=== PATIENT | female | born 1990 | race African-American/Black ===

== ENCOUNTER 2020-12-23 10:43 | Outpatient (CLI) | payer MEDICAID, SELFPAY ==
[2020-12-23 11:07] LABS: HCT 30.7 % (36.0-46.0); HGB 10.5 g/dL (11.2-15.7); MCH 27.5 pg (27.0-33.0); MCHC 34.2 % (32.0-36.0); MCV 80.4 fL (80-95); MPV 11.2 fL (8.0-11.0); Platelet Count 300 10^3/uL (130-400); RBC 3.82 10^6/uL (3.93-5.22); RDW 13.4 % (11.7-14.6); RDW-SD 38.9 fL; WBC 8.55 10^3/uL (4.4-10.8)
[2020-12-23 11:24] LABS: Hemoglobin A1C 5.3 % (<5.7)
[2020-12-23 12:24] LABS: ALT 25 U/L (14-59); AST 14 U/L (15-37); Albumin 3.2 g/dL (3.4-5.0); Alkaline Phosphatase 39 U/L (46-116); Anion Gap 9.4 mmol/L (3-11); BUN 4 mg/dL (7-18); Bilirubin, Total 0.2 mg/dL (0.2-1.0); CO2 26.6 mmol/L (21.0-32.0); CREATININE 0.5 mg/dL (0.55-1.02); Calcium 9.2 mg/dL (8.5-10.1); Chloride 108 mmol/L (98-107); Glucose 77 mg/dL (74-106); Potassium 4.2 mmol/L (3.5-5.1); Sodium 144 mmol/L (136-145); Total Protein 6.9 g/dL (6.4-8.2); Uric Acid 3.9 mg/dL (2.6-6.0)
[2020-12-23 14:00] LABS: LDH 153 U/L (81-234)
[2020-12-23 16:47] LABS: PROTEIN 24.3 mg/dL
[2020-12-23 16:58] LABS: *AMPHETAMINES SCREEN URINE Negative (Negative); *BARBITURATES SCREEN URINE Negative (Negative); *BENZODIAZEPINES SCREEN URINE Negative (Negative); Cannabinoids THC Negative (Negative); Cocaine Screen,Urine Negative (Negative); METHADONE URINE SCREEN Negative (Negative); OPIATES URINE SCREEN Negative (Negative)
[2020-12-23 17:34] LABS: Tricyclic Antidepressants Negative (Negative)
[2020-12-23 17:53] LABS: COMMENT (LAB VIEW ONLY) 140.83 mg/dL; Prot/Crea Ur Ratio 0.17
== END 2020-12-23 10:44 | disposition home or self-care (01) ==
LOC: LBO 10:44
PROVIDERS: Visit Provider Advanced Practice Midwife
DX: I10 Essential (primary) hypertension (principal); Z34.92 Encounter for supervision of normal pregnancy, unspecified, second trimester
CPT/HCPCS: 36415; 80053; 80307; 85027; 86850; 86900; 86901; 82565; 83036; 83615; 84156; 84550

== ENCOUNTER 2021-01-19 13:54 | Outpatient (REF) | payer MEDICAID, SELFPAY | END 2021-01-19 13:55 | disposition home or self-care (01) | LOC: LBN 13:54 | PROVIDERS: Visit Provider Obstetrics & Gynecology | DX: Z34.92 Encounter for supervision of normal pregnancy, unspecified, second trimester (principal) | CPT/HCPCS: 87086 ==

== ENCOUNTER 2021-03-07 15:10 | Outpatient (CLI) | payer MEDICAID, SELFPAY ==
[2021-03-07 15:10] VITALS: BP 116/69; PULSE 108; TEMP 36.6
[2021-03-07 15:17] VITALS: BP 116/69; PULSE 108; RESP 16; TEMP 36.6
[2021-03-08 07:47] VITALS: BP 116/69; PULSE 108; TEMP 36.6
--- NOTE | 2021-03-08 07:47 | W.OBNST ---
Date of service: 03/08/21 Time of Service: 07:47 NST Evaluation Reason for NST Reasons for Nonstress Test: OTHER, SEE COMMENT Reason for NST Other: Hx of demise Gestational Age Gestational Age in Weeks and Days: 33 Weeks and 4Days Test and Monitor Explained Test/Monitor Explained: Test Explained, Monitor Explained and Patient Verbalized Understanding Vital Signs Blood Pressure: 116/69 Pulse: 108 Temperature: 97.9 F NST Information Date on Monitor: 03/07/21 Time on Monitor: 15:12 Date off Monitor: 03/07/21 Time off Monitor: 15:33 Total Time on Monitor: 21 NST Interventions: None NST Evaluation Patient States Movement: Present FHR Baseline: 130 Variability: Moderate 6-25 bpm Accelerations: 15x15 Decelerations: None NST Results: Reactive Note NST Note Note: Reactive NST, category 1 strip, irregular mild contractions noted. Nonpalpable. NST Reviewed and Verified by: Buffy Lantigua
== END 2021-03-07 15:45 | disposition home or self-care (01) ==
LOC: BCD 15:11 → OBS 15:15
PROVIDERS: Visit Provider Obstetrics & Gynecology
DX: O09.293 Supervision of pregnancy with other poor reproductive or obstetric history, third trimester (principal); Z3A.33 33 weeks gestation of pregnancy; Z87.59 Personal history of other complications of pregnancy, childbirth and the puerperium
CPT/HCPCS: 59025

== ENCOUNTER 2021-03-07 16:23 | Outpatient (REF) | payer MEDICAID, SELFPAY | END 2021-03-07 16:24 | disposition home or self-care (01) | LOC: LBN 16:23 | PROVIDERS: Visit Provider Obstetrics & Gynecology | DX: Z34.93 Encounter for supervision of normal pregnancy, unspecified, third trimester (principal) | CPT/HCPCS: 87077; 87086 ==

== ENCOUNTER 2021-03-14 09:58 | Outpatient (CLI) | payer MEDICAID, SELFPAY ==
[2021-03-14 12:44] VITALS: BP 131/78; PULSE 103; TEMP 36.8
[2021-03-14 13:02] VITALS: BP 131/78; PULSE 103
[2021-03-16 07:35] VITALS: BP 131/78; PULSE 103; TEMP 36.8
--- NOTE | 2021-03-16 07:35 | W.OBNST ---
Date of service: 03/16/21 Time of Service: 07:35 NST Evaluation Reason for NST Reasons for Nonstress Test: GDM- PO MEDICATION Gestational Age Gestational Age in Weeks and Days: 34 Weeks and 4Days Test and Monitor Explained Test/Monitor Explained: Test Explained, Monitor Explained and Patient Verbalized Understanding Vital Signs Blood Pressure: 131/78 Pulse: 103 Temperature: 98.2 F NST Information Date on Monitor: 03/14/21 Time on Monitor: 12:47 Date off Monitor: 03/14/21 NST Interventions: None NST Evaluation Patient States Movement: Present FHR Baseline: 140 Variability: Moderate 6-25 bpm Accelerations: 15x15 Decelerations: None NST Results: Reactive Note NST Note Note: Reactive NST, Category 1 strip NST Reviewed and Verified by: Buffy Lantigua
== END 2021-03-14 13:30 | disposition home or self-care (01) ==
LOC: BCD 10:15 → OBS 12:43
PROVIDERS: Visit Provider Obstetrics & Gynecology
DX: O24.415 Gestational diabetes mellitus in pregnancy, controlled by oral hypoglycemic drugs (principal); Z3A.34 34 weeks gestation of pregnancy
CPT/HCPCS: 59025

== ENCOUNTER 2021-03-17 09:52 | Outpatient (CLI) | payer MEDICAID, SELFPAY ==
[2021-03-17 13:49] VITALS: BP 125/71; PULSE 95; TEMP 36.7
[2021-03-17 14:07] VITALS: BP 125/71; PULSE 95
--- NOTE | 2021-03-17 15:08 | W.OBNST ---
Date of service: 03/17/21 Time of Service: 15:08 NST Evaluation Reason for NST Reasons for Nonstress Test: GDM- PO MEDICATION Gestational Age Gestational Age in Weeks and Days: 35 Weeks and 0Days Test and Monitor Explained Test/Monitor Explained: Test Explained, Monitor Explained and Patient Verbalized Understanding Vital Signs Blood Pressure: 125/71 Pulse: 95 Temperature: 98.1 F NST Information Date on Monitor: 03/17/21 Time on Monitor: 13:48 Date off Monitor: 03/17/21 Time off Monitor: 14:23 Total Time on Monitor: 35 NST Interventions: None Contraction Frequency: occasional NST Evaluation Patient States Movement: Present FHR Baseline: 135 Variability: Moderate 6-25 bpm Accelerations: 15x15 and Prolonged Decelerations: None NST Results: Reactive Note NST Note Note: Reactive NST. Pt has f/u appt 03/21/21. NST Reviewed and Verified by: Tereza Alfonso
[2021-03-17 15:10] VITALS: BP 125/71; PULSE 95; TEMP 36.7
== END 2021-03-17 14:30 | disposition home or self-care (01) ==
LOC: BCD 09:53 → OBS 13:05
PROVIDERS: Visit Provider Obstetrics & Gynecology
DX: O24.415 Gestational diabetes mellitus in pregnancy, controlled by oral hypoglycemic drugs (principal); Z3A.35 35 weeks gestation of pregnancy
CPT/HCPCS: 59025

== ENCOUNTER 2021-03-21 00:24 | Outpatient (CLI) | payer MEDICAID, SELFPAY ==
--- NOTE | 2021-03-21 07:30 | DI.US_ITS ---
Exam(s) US OB SACHA WEIGHT EXAM: US OB SACHA WEIGHT CLINICAL HISTORY: Growth and SACHA,gest diabetes,O24.419. TECHNIQUE: Transabdominal obstetrical ultrasound was performed. COMPARISON: No exams were available for comparison FINDINGS: There is a single viable intrauterine gestation with cardiac activity identified-152 bpm The fetus is presently in cephalic position . Amniotic fluid: There is a normal amount of amniotic fluid with an SACHA of 16.2cm. Placental location: The placenta is anterior grade 2,with no evidence of placenta previa.Distance fro m the placenta tip to the internal cervical os is greater than [address] this at approximately 35 weeks and 4 days gestational age, implying CONNIE of April 21, 2021. BPD measures 35 weeks and 4 days HC measures 35 weeks and 4 days AC measures 35 weeks and 4 days FL measures 35 weeks and 4 days Estimated weight is 2712 gm-6 pounds 0 ounce Fetus is at the 49th percentile on the Hadlock scale. IMPRESSION:: Viable 3rd trimester gestation, as described above. DATA REPOSITORY:
== END 2021-03-21 00:44 ==
PROVIDERS: Visit Provider Obstetrics & Gynecology
DX: O24.415 Gestational diabetes mellitus in pregnancy, controlled by oral hypoglycemic drugs (principal); O09.293 Supervision of pregnancy with other poor reproductive or obstetric history, third trimester; Z98.891 History of uterine scar from previous surgery; Z3A.35 35 weeks gestation of pregnancy
CPT/HCPCS: 76816

== ENCOUNTER 2021-03-21 13:52 | Outpatient (CLI) | payer MEDICAID, SELFPAY ==
[2021-03-21 14:11] VITALS: BP 126/74; PULSE 101; TEMP 36.7
--- NOTE | 2021-03-21 14:34 | W.ANESCON ---
General Date of Service Date of Service: 03/21/21 Reason for Consult Requesting Provider: Buffy Lantigua How Consult Conducted:: Seen in Office Reason for Consult:: Turkish-speaking OB patient scheduled for a on 03/30/21. Negative circumstances surrounding previous with demise. Consult Recommendation after Review:: I was able to discuss the plan with the patient using the translation grace, and also answer her questions. Her support person, Neha was also there. I plan to be her anesthesia provider for the procedure for continuity of care. Meds Allergies and Home Medications Allergies Allergy/AdvReac Type Severity Reaction Status Date / Time No Known Allergies Allergy Verified 02/15/21 15:07 Home Medication Medication Instructions Recorded famotidine 20 mg tablet 20 mg PO BID #60 tab 12/23/20 prenat.vits,elmo,hlp-dfns-qusyz 1 tab PO DAILY #30 tab 12/23/20 vitamin d PO 12/29/20 aspirin 81 mg tablet,delayed 162 mg PO DAILY #60 tab MDD 2 02/08/21 release tablets blood sugar diagnostic (OneTouch #100 ea 02/08/21 Ultra Test) lancets 33 gauge (OneTouch Delica #100 ea 02/08/21 Plus Lancet) metformin 1,000 mg tablet 1,000 mg PO DAILY #60 tab 03/07/21 metformin 500 mg tablet 500 mg PO DAILY #60 tab 03/07/21 cephalexin 500 mg capsule 500 mg PO BID #14 cap 03/09/21 PFSH Active Problems Active Problems: Problem Status Onset Code Group B streptococcal UTI N39.0, B95.5 UTI in O23.40 cardiac echogenic focus O35.8XX0 Hx of preeclampsia, prior , currently O09.299 Diabetes E11.9 Essential hypertension I10 Previous section Z98.891 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 Date GA/Weeks # Outcome Route Wgt Sex Labor Lgth Anesthesia Location Prov Complic 11/30/19 Unsuccessful [place] Delivery Date: 11/30/19 Last Updated by: Joy Pagan CNM 6 months, still born, no labor. . patient does not know etiology of loss or indications for . Vital Signs & Lab Results Point of Care Results Nursing Point of Care Results: No Data to Display Lab Results Blood Type / Crossmatch: No Data to Display Complete Blood Count: No Data to Display Complete Metabolic Panel: No Data to Display Liver Function Panel: No Data to Display Coagulation Panel: No Data to Display Cardiac Panel: No Data to Display Arterial Blood Gas: No Data to Display Venous Blood Gas: No Data to Display Pancreas Panel: No Data to Display Thyroid Panel: No Data to Display Infectious Disease: No Data to Display Blood Cultures: No Data to Display Toxicology Panel: No Data to Display Panel: No Data to Display
--- NOTE | 2021-03-21 14:54 | W.OBNST ---
Date of service: 03/21/21 Time of Service: 14:54 NST Evaluation Reason for NST Reasons for Nonstress Test: GDM- PO MEDICATION Gestational Age Gestational Age in Weeks and Days: 35 Weeks and 4Days Test and Monitor Explained Test/Monitor Explained: Test Explained, Monitor Explained and Patient Verbalized Understanding Vital Signs Blood Pressure: 126/74 Pulse: 101 Temperature: 98.1 F NST Information Date on Monitor: 03/21/21 Time on Monitor: 13:53 NST Interventions: PO Hydration NST Evaluation Patient States Movement: Present FHR Baseline: 140 Variability: Moderate 6-25 bpm Accelerations: 15x15 Decelerations: None NST Results: Reactive Note NST Note Note: Patient seen on the center today for surveillance due to history of previous stillbirth. She is doing well. Baby is moving and active. She has a reactive, category 1 NST. She will be seen on for repeat nonstress testing. She is scheduled for repeat section at 37 weeks. NST Reviewed and Verified by: Buffy Lantigua
[2021-03-21 14:55] VITALS: BP 126/74; PULSE 101; TEMP 36.7
== END 2021-03-21 14:30 | disposition home or self-care (01) ==
LOC: BCD 13:53 → OBS 14:08
PROVIDERS: Visit Provider Obstetrics & Gynecology
DX: O24.415 Gestational diabetes mellitus in pregnancy, controlled by oral hypoglycemic drugs (principal); Z3A.35 35 weeks gestation of pregnancy
CPT/HCPCS: 59025

== ENCOUNTER 2021-03-24 08:54 | Outpatient (CLI) | payer MEDICAID, SELFPAY ==
[2021-03-24 11:51] VITALS: BP 136/71; PULSE 114; TEMP 37
[2021-03-24 11:52] VITALS: BP 136/71; PULSE 114; TEMP 37
--- NOTE | 2021-03-29 16:44 | W.OBNST ---
Date of service: 03/24/21 Time of Service: 16:44 NST Evaluation Reason for NST Reasons for Nonstress Test: GDM- PO MEDICATION Gestational Age Gestational Age in Weeks and Days: 36 Weeks and 4Days Test and Monitor Explained Test/Monitor Explained: Patient Verbalized Understanding Vital Signs Blood Pressure: 136/71 Pulse: 114 Temperature: 98.6 F NST Information Date on Monitor: 03/24/21 Time on Monitor: 11:45 Date off Monitor: 03/24/21 Time off Monitor: 12:08 Total Time on Monitor: 23 NST Interventions: PO Hydration and Notify Provider NST Evaluation Patient States Movement: Present FHR Baseline: 140 Variability: Moderate 6-25 bpm Accelerations: 15x15 NST Results: Reactive Note NST Note Note: Reactive NST. Patient has signed preoperative consent for repeat delivery next week. Her questions were answered she will follow-up as needed. NST Reviewed and Verified by: Tereza Alfonso
[2021-03-29 16:45] VITALS: BP 136/71; PULSE 114; TEMP 37
== END 2021-03-24 13:09 | disposition home or self-care (01) ==
LOC: BCD 08:56 → OBS 11:48
PROVIDERS: Visit Provider Obstetrics & Gynecology Gynecology
DX: O24.415 Gestational diabetes mellitus in pregnancy, controlled by oral hypoglycemic drugs (principal); Z3A.36 36 weeks gestation of pregnancy
CPT/HCPCS: 59025; 87081

== ENCOUNTER 2021-03-28 02:20 | Outpatient (CLI) | payer MEDICAID, SELFPAY ==
[2021-03-28 10:00] LABS: Source Nasal/Nares
[2021-03-28 15:03] LABS: COVID-19 PCR Negative (Negative)
== END 2021-03-28 02:21 | disposition home or self-care (01) ==
PROVIDERS: Visit Provider Obstetrics & Gynecology
DX: Z20.822 Contact with and (suspected) exposure to COVID-19 (principal); Z01.818 Encounter for other preprocedural examination
CPT/HCPCS: 36415; 86850; 86900; 86901; 87635; 85025

== ENCOUNTER 2021-03-28 02:46 | Outpatient (CLI) | payer MEDICAID, SELFPAY ==
[2021-03-28 09:52] LABS: Abs Immature Grans 0.07 10^3/uL (0.0-0.06); Absolute Basophil Count 0.02 10^3/uL (0.0-0.2); Absolute Eosinophil Count 0.03 10^3/uL (0.0-0.7); Absolute Lymphocyte Count 2.21 10^3/uL (1.2-3.4); Absolute Monocyte Count 0.64 10^3/uL (0.1-0.8); Absolute Neutrophil Count 6.02 10^3/uL (1.2-6.7); Basophils % 0.2; Eosinophils % 0.3; HCT 32.8 % (36.0-46.0); HGB 11.2 g/dL (11.2-15.7); Immature Grans % 0.8; Lymphocytes % 24.6; MCH 27.4 pg (27.0-33.0); MCHC 34.1 % (32.0-36.0); MCV 80.2 fL (80-95); MPV 11.8 fL (8.0-11.0); Monocytes % 7.1; Nucleated RBC 0 %; Platelet Count 305 10^3/uL (130-400); RBC 4.09 10^6/uL (3.93-5.22); RDW 13.7 % (11.7-14.6); RDW-SD 39.6 fL; WBC 8.99 10^3/uL (4.4-10.8)
== END 2021-03-28 02:47 | disposition home or self-care (01) ==
LOC: LBO 02:47
PROVIDERS: Visit Provider Obstetrics & Gynecology
DX: Z01.818 Encounter for other preprocedural examination (principal)
CPT/HCPCS: 36415; 86850; 86900; 86901; 85025

== ENCOUNTER 2021-03-28 08:14 | Outpatient (CLI) | payer MEDICAID, SELFPAY ==
[2021-03-28 07:45] VITALS: BP 127/78; PULSE 101; TEMP 36.6
--- NOTE | 2021-03-28 09:09 | W.OBNST ---
Date of service: 03/28/21 Time of Service: 09:10 NST Evaluation Reason for NST Reasons for Nonstress Test: GDM- PO MEDICATION Gestational Age Gestational Age in Weeks and Days: 36 Weeks and 4Days Test and Monitor Explained Test/Monitor Explained: Test Explained, Monitor Explained and Patient Verbalized Understanding Vital Signs Blood Pressure: 127/78 Pulse: 101 Temperature: 97.9 F NST Information Date on Monitor: 03/28/21 Time on Monitor: 07:44 Date off Monitor: 03/28/21 Time off Monitor: 08:21 Total Time on Monitor: 37 NST Interventions: None Contraction Frequency: occasional NST Evaluation Patient States Movement: Present FHR Baseline: 135 Variability: Moderate 6-25 bpm Accelerations: 15x15 Decelerations: None NST Results: Reactive Note NST Note Note: Reactive NST, category 1 strip. Follow-up for repeat section as scheduled on Sunday NST Reviewed and Verified by: Buffy Lantigua
[2021-03-28 09:10] VITALS: BP 127/78; PULSE 101; TEMP 36.6
== END 2021-03-28 09:15 | disposition home or self-care (01) ==
LOC: BCD 08:15 → OBS 08:55
PROVIDERS: Visit Provider Obstetrics & Gynecology
DX: O24.415 Gestational diabetes mellitus in pregnancy, controlled by oral hypoglycemic drugs (principal); Z3A.36 36 weeks gestation of pregnancy
CPT/HCPCS: 59025; 87635

== ENCOUNTER 2021-03-30 05:35 | Inpatient (IN) | payer MEDICAID, SELFPAY ==
[2021-03-30] VITALS (8 sets, daily range): BP systolic 110–139; BP diastolic 70–90; PULSE 93–115; RESP 18–22; TEMP 36.2–37; O2SAT 100; BMI 27.6
[2021-03-30] MEDS: Lactated Ringers 1,000 ML 200 ML IV (06:39)
[2021-03-30] MEDS: ceFAZolin 2 GM/50 ML BAG IVPB (06:40)
[2021-03-30] MEDS: Sodium Citrate 30 ML CUP PO (07:24)
[2021-03-30] MEDS: AZITHROMYCIN 500 MG in Normal Saline 250 ML 250 MG IVPB (07:24)
--- NOTE | 2021-03-30 07:24 | ANES.PREOP_ITS ---
General Info Date of Service Date Performed: 03/30/21 Height: 5 ft 10 in Weight: 87.543 kg Body Mass Index (BMI): 27.6 Surgical Procedure: Operation Date: 03/30/21 07:40 Proposed Procedure Side Surgeon p Repeat Section, possible Hysterectomy Tereza Alfonso MD Meds Allergies and Home Medications Allergies Allergy/AdvReac Type Severity Reaction Status Date / Time No Known Allergies Allergy Verified 02/15/21 15:07 Home Medication Medication Instructions Recorded famotidine 20 mg tablet 20 mg PO BID #60 tab 12/23/20 prenat.vits,elmo,fad-tzob-wsdzo 1 tab PO DAILY #30 tab 12/23/20 vitamin d 2,000 units PO DAILY 12/29/20 aspirin 81 mg tablet,delayed 162 mg PO DAILY #60 tab MDD 2 02/08/21 release tablets blood sugar diagnostic (OneTouch #100 ea 02/08/21 Ultra Test) lancets 33 gauge (OneTouch Delica #100 ea 02/08/21 Plus Lancet) metformin 1,000 mg tablet 1,000 mg PO DAILY #60 tab 03/07/21 metformin 500 mg tablet 500 mg PO DAILY #60 tab 03/07/21 Current Visit Medications: Current Medications Generic Name Dose Route Start Last Admin Trade Name Freq PRN Reason Stop Dose Admin Citric Acid/Sodium Citrate 30 ml 03/30/21 06:00 Sodium Citrate 30 Ml Cup PO PREOP BIANCA Sodium Chloride 500 mls @ 0 mls/hr 03/30/21 05:58 Saline 500ml Bag IV PRN PRN As Directed Ringer's Solution 1,000 mls @ 200 mls/hr 03/30/21 06:00 03/30/21 06:39 IV 200 mls/hr INFUSION BIANCA Administration Cefazolin Sodium/Dextrose 2 gm in 50 mls @ 100 mls/hr 03/30/21 06:00 03/30/21 06:40 Ancef Duplex IVPB 100 mls/hr PREOP BIANCA Administration Azithromycin 500 mg/ Sodium 250 mls @ 250 mls/hr 03/30/21 06:00 Chloride IVPB PREOP BIANCA IV Miscellaneous Supplies 1 each 03/30/21 06:00 Iv Access IV DIRECTED BIANCA Sodium Chloride 0 ml 03/30/21 05:58 Normal Saline Flush 10 Ml Syr IVP PRN PRN PFSH Active Problems Active Problems: Problem Status Onset Code Group B streptococcal UTI N39.0, B95.5 UTI in O23.40 cardiac echogenic focus O35.8XX0 Hx of preeclampsia, prior , currently O09.299 Diabetes E11.9 Essential hypertension I10 Previous section Z98.891 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 Date GA/Weeks # Outcome Route Wgt Sex Labor Lgth Anesthes ia Location [facility] 11/30/19 Unsuccessful [place] Delivery Date: 11/30/19 Last Updated by: Joy Pagan CNM 6 months, still born, no labor. . patient does not know etiology of loss or indications for . Vital Signs and Lab Results Vital Signs Most Recent Vital Signs in EMR: Most Recent Vital Signs Temp Pulse Resp BP Pulse Ox 37 C 105 H 18 128/80 100 03/30/21 06:00 03/30/21 06:00 03/30/21 06:00 03/30/21 06:00 03/30/21 06:00 Lab Results Blood Type / Crossmatch: Patient ABO/Rh O Positive 03/28/21 Antibody Screen NEGATIVE 03/28/21 Complete Blood Count: White Blood Count 8.99 10^3/uL (4.4-10.8) 03/28/21 09:42 03/28/21 Red Blood Count 4.09 10^6/uL (3.93-5.22) 03/28/21 09:42 03/28/21 Hemoglobin 11.2 g/dL (11.2-15.7) 03/28/21 09:42 03/28/21 Hematocrit 32.8 % (36.0-46.0) L 03/28/21 09:42 03/28/21 Platelet Count 305 10^3/uL (130-400) 03/28/21 09:42 03/28/21 Complete Metabolic Panel: No Data to Display Liver Function Panel: No Data to Display Coagulation Panel: No Data to Display Cardiac Panel: No Data to Display Arterial Blood Gas: No Data to Display Venous Blood Gas: No Data to Display Pancreas Panel: No Data to Display Thyroid Panel: No Data to Display Infectious Disease: Coronavirus (COVID-19)(PCR) Negative (Negative) 03/28/21 09:15 03/28/21 Coronavirus 2019 Source Nasal/Nares 03/28/21 09:15 03/28/21 Blood Cultures: No Data to Display Toxicology Panel: No Data to Display Panel: No Data to Display Anesthesia Assessment and Plan Anesthesia History Personal History: No History of Anesthesia Complications Family History: No Family History of Anesthesia Complications Exercise Tolerance Exercise Tolerance: Metabolic Equivalents>4 Pertinent Negatives Pertinent Negatives: No Symptoms of GERD (On meds), No Major Cardiovascular Symptoms or Complaints, No Major Pulmonary Symptoms or Complaints and No History of CVA/TIA Cardiac & Pulmonary Exam Cardiac Exam: Normal S1/S2 Heart Sounds Pulmonary Exam: Clear Bilateral Breath Sounds Implantable Cardiac Device Does patient have a Pacemaker or an ICD?: No Airway Exam Known Difficult Airway: No Mallampati Class: 2 Mouth Opening: Normal (> 3cm) Thyromental Distance: Greater than 3 cm Neck Range of Motion: Full ROM Neck Circumference: Normal Teeth Condition: Normal Dentition ASA Classification ASA Score: ASA 2 Emergency Case?: No NPO Status NPO Status: NPO Clears >2 hours, Solids >8 hours Status Status: Confirmed Anesthesia Plan Resuscitation Status: Full Code Anesthesia Technique: Spinal Anesthesia Airway Planned: Natural Airway Monitors Used: Standard Monitors Preoperative Comments:: See preop consult
--- NOTE | 2021-03-30 08:09 | PLAC_PTH ---
PATIENT: Jolynn Bullock LOC: OBS U#:[id number] AGE/SX: 31/F ROOM: OBS.303 RE03/30/[address]: Tereza Alfonso : 1990 BED: A DIS: 03/30/2021 SPEC #: [id number] RECD: 03/30/21 12:36 STATUS: ARSLAN REQ #: [id number] SANDEE: 03/30/21 08:[address]: Tereza Alfonso DEPT: Surgical Specimen RECD BY: Elsa Delaney ENTERED: 03/30/21 12:37 SP TYPE: PLAC OTHR DR: Unknown,Unknown Tissues: 1 - PLACENTA (3RD TRIMESTER) Procedures: GROSS AND MICRO LEVEL 5 Comments: [id number]
[2021-03-30] MEDS: Bupivacaine LIPOSOME/PF 133 MG/10 ML VIAL IJ (08:41)
[2021-03-30] MEDS: Bupivacaine 0.5% Pres-Free 30 ML VIAL (08:42)
--- NOTE | 2021-03-30 09:21 | ROE_ITS ---
Date of service: 03/30/21 Time of Service: 09:21 Operative Note Operative Note DATE OF PROCEDURE: 03/30/21 PRE-OP DIAGNOSIS: IUP at 36w6d EGA. Unknown uterine scar, most likely vertical incision. PROCEDURE: scheduled repeat LTCS- SURGEON: Tereza Alfonso ASSISTING SURGEON: Maritza Jim ANESTHESIA TYPE: Spinal Refer to Anesthesia Record ESTIMATED BLOOD LOSS: 500 PATHOLOGY: other (placenta) COMPLICATIONS: None Patient was transported to: floor Patient's condition: stable Indications: 31yo female currently at 36W6D EGA was recommended to have a repeat delivery. Patient's previous was complicated by a intrauterine demise at 26 weeks and a . It was unclear from the patient's history what type of uterine scar was present. The concern was that patient had the vertical uterine incision at the time of her previous delivery. Because of the risk of uterine rupture were she to have labor decision was made to proceed with the delivery at around 37 weeks. Findings: Female infant weighing. Apgars 4/8/9 clear amniotic fluid normal-appearing uterus. There is no evidence of a previous uterine scar. Normal fallopian tubes and ovaries. Procedure Description: Patient was taken to the operating room she is placed in the sitting position and spinal anesthesia was administered without difficulty. She was then placed in the dorsal supine position with a leftward tilt. SCDs and a Lambert catheter to gravity drainage were in place. A vaginal prep with Betadine was performed and the patient was prepped and draped in the usual sterile fashion.Surgical timeout was performed. After a adequate level of anesthesia was achieved a Pfannenstiel skin incision was made approximately 2 cm superior to the pubic symphysis using a scalpel and the keloid from previous Pfannenstiel incision was excised and the underlying subcutaneous tissue dissected to the level of the rectus fascia using Bovie electrocautery . The rectus fascia was then nicked in the midline and the fascial incision extended laterally using curved Rosenberg scissors. 2 Live clamps were applied to the inferior rectus fascia and the rectus fascia was dissected off of the underlying rectus muscles using Bovie electrocautery and blunt technique. A similar technique was carried out on the superior rectus fascia. Rectus muscles were then in the midline and the peritoneum entered bluntly. The peritoneal incision was extended laterally using blunt technique. The vesicle-uterine peritoneum over lower uterine segment was incised with curved Rosenberg scissors and the bladder flap created bluntly. Scalpel was used to incise the lower uterine segment in a transverse fashion. The uterine incision was extended bluntly and the amniotic sac was ruptured with clear amniotic fluid noted. A single gloved hand was placed into the uterine cavity and the head was successfully delivered through the uterine incision with the assistance of a Kiwi suction cup applied to the 's occiput. The trunk and extremities were delivered with the assistance of fundal pressure. The cord was doubly clamped and cut and the infant handed off to the waiting pediatric team. Cord blood was obtained for lab and for arterial blood gas. the placenta was extracted with a combination of fundal massage and gentle cord traction. The uterus was exteriorized cleared of all clots and debris and the uterine incision reapproximated with a running lock suture of 0 Vicryl followed by a second imbricating suture of 0 Vicryl. Uterine incision was noted be hemostatic. The uterus was returned to the abdomen and the paracolic gutters cleared of all clots and debris. Uterine incision and the along with the bladder flap and the abdominal wall were all inspected and noted to be hemostatic. Peritoneum was reapproximated with a running suture of 2-0 Vicryl. The rectus fascia was reapproximated with a running suture of 0 Vicryl. space within the subcutaneous tissue closed with a running suture of 2-0 Vicryl. The skin i ncision was reapproximated with a subcuticular closure of 4-0 Monocryl. Skin incision is and sealed with skin glue. The uterus was massaged for any remaining clots and debris's. The patient was transported to recovery area in stable condition. All sponge, lap, and needle counts correct x2.
[2021-03-30] MEDS: MORPHine 2 MG/ML SYR 1 MG IVP ×2 (09:57→13:55)
--- NOTE | 2021-03-30 10:36 | W.ANESPOSTOP ---
Postoperative Evaluation Date, Time and Location Date Performed: 03/30/21 Time Performed: 09:15 Patient Location: Obstetrics Vital Signs Most Recent Imported Vital Signs: Most Recent Vital Signs Temp Pulse Resp BP Pulse Ox 36.4 C L 93 H 18 110/74 100 03/30/21 09:45 03/30/21 09:15 03/30/21 09:45 03/30/21 09:45 03/30/21 09:45 Pain Score Most Recent Pain Score: Most Recent Pain Score Pain Level 0 03/30/21 06:00 Assessment Mental Status: Awake (Alert & Oriented to Patient Baseline) Airway and Respiratory Function: Patent airway with normal (patient baseline) respiratory exam Cardiovascular Function: Hemodynamically Stable Hydration Status: Adequately Hydrated Nausea & Vomiting: No Nausea or Vomiting Pain: Pain is tolerable per patient Peripheral Nerve Block: Patient did not receive a nerve block
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
== END 2021-03-30 14:00 | disposition short-term general hospital (02) | DRG 787 ==
PROVIDERS: Admitting Provider Obstetrics & Gynecology Gynecology; Visit Provider Obstetrics & Gynecology Gynecology
PROC: 10D00Z1 Extraction of Products of Conception, Low, Open Approach (ICD-10-PCS; CPT 59514; principal; 2021-03-30 07:30)
DX: O24.12 Pre-existing type 2 diabetes mellitus, in childbirth (principal); O10.02 Pre-existing essential hypertension complicating childbirth; Z37.0 Single live birth; O99.12 Other diseases of the blood and blood-forming organs and certain disorders involving the immune mechanism complicating childbirth; Z3A.36 36 weeks gestation of pregnancy; O99.344 Other mental disorders complicating childbirth; F32.A Depression, unspecified; O34.219 Maternal care for unspecified type scar from previous cesarean delivery; D56.8 Other thalassemias
CPT/HCPCS: 59514; 88307; A4600; J0456; J0690; J1885; J2270; J2405; J2704; J3010

== ENCOUNTER 2022-01-10 16:44 | Outpatient (REF) | payer MEDICAID, SELFPAY ==
--- NOTE | 2022-01-10 16:15 | SKI_PTH ---
PATIENT: Jolynn Bullock LOC: [facility] U#:[id number] AGE/SX: 31/F ROOM: RE01/10/[address]: Rocael Tam MD : 1990 BED: DIS: 01/10/2022 SPEC #: [id number] RECD: 01/11/22 12:06 STATUS: ARSLAN REQ #: [id number] SANDEE: 01/10/22 16:[address]: Rocael Tam DEPT: Surgical Specimen RECD BY: Elas Delaney Tissues: 1 - SKIN BIOPSY(SHAVE/PUNCH) Procedures: SKIN LEVEL 4 Comments: [id number]
== END 2022-01-10 16:45 | disposition home or self-care (01) ==
LOC: LBN 16:44
PROVIDERS: PCP Family Medicine; Visit Provider Family Medicine
DX: B07.8 Other viral warts (principal)
CPT/HCPCS: 88305

== ENCOUNTER 2022-05-30 11:41 | Outpatient (CLI) | payer MEDICAID, SELFPAY ==
[2022-05-30 12:44] LABS: HCT 37.7 % (36.0-46.0); HGB 12.8 g/dL (11.2-15.7); MCH 25.6 pg (27.0-33.0); MCV 75 fL (80-95); Platelet Count 362 10^3/uL (130-400); RDW 14.1 % (11.7-14.6); WBC 7.81 10^3/uL (4.4-10.8)
[2022-05-30 12:58] LABS: Anion Gap 6.5 mmol/L (3-11); BUN 8 mg/dL (7-18); CO2 31.5 mmol/L (21.0-32.0); CREATININE 0.7 mg/dL (0.55-1.02); Calcium 9.5 mg/dL (8.5-10.1); Chloride 103 mmol/L (98-107); Estimated GFR 118.51 (mL/min/1.73m2); Glucose 140 mg/dL (74-106); Potassium 3.9 mmol/L (3.5-5.1); Sodium 141 mmol/L (136-145)
[2022-05-30 13:00] LABS: Hemoglobin A1C 6.1 % (<5.7)
[2022-05-30 13:49] LABS: Vitamin D 25 Total 22.6 ng/mL (30-100)
[2022-05-31 11:16] LABS: Hep B Core Antibody Negative (Negative)
== END 2022-05-30 11:42 | disposition home or self-care (01) ==
LOC: LOS 11:41
PROVIDERS: PCP Family Medicine; Referring Provider Family Medicine; Visit Provider Family Medicine
DX: E11.51 Type 2 diabetes mellitus with diabetic peripheral angiopathy without gangrene; E87.1 Hypo-osmolality and hyponatremia; G40.909 Epilepsy, unspecified, not intractable, without status epilepticus; R53.83 Other fatigue
CPT/HCPCS: 36415; 80048; 82306; 85027; 86704; 83036

== ENCOUNTER 2022-06-22 14:28 | Outpatient (REF) | payer MEDICAID, SELFPAY ==
--- NOTE | 2022-06-22 11:50 | PAPFT_PTH ---
PATIENT: Jolynn Bullock LOC: [facility] U#:[id number] AGE/SX: 32/F ROOM: RE06/22/[address]: Maritza Jim MD : 1990 BED: DIS: 06/22/2022 SPEC #: [id number] RECD: 06/22/22 14:44 STATUS: ARSLAN REQ #: [id number] SANDEE: 06/22/22 11:[address]: Maritza Jim DEPT: [facility] Cytology RECD BY: Elsa Delaney ENTERED: 06/22/22 14:44 SP TYPE: PAPFT OTHR DR: Rocael Tam MD Tissues: 1 - CX/ENDOCX FOR PAP SMEARS Procedures: PAP THIN PREP/[facility] Screening HPV DNA PROBE Comments: [id number]
== END 2022-06-22 14:29 | disposition home or self-care (01) ==
LOC: LBN 14:28
PROVIDERS: PCP Family Medicine; Visit Provider Obstetrics & Gynecology
DX: Z12.4 Encounter for screening for malignant neoplasm of cervix (principal); Z11.51 Encounter for screening for human papillomavirus (HPV)
CPT/HCPCS: 88142; 87624

== ENCOUNTER 2022-08-04 01:21 | Outpatient (CLI) | payer MEDICAID, SELFPAY ==
[2022-08-04 14:46] LABS: Panorama Kit Sent via Fed Ex
[2022-08-04 14:49] LABS: Abs Immature Grans 0.05 10^3/uL (0.0-0.06); Absolute Basophil Count 0.02 10^3/uL (0.0-0.2); Absolute Eosinophil Count 0.11 10^3/uL (0.0-0.7); Absolute Lymphocyte Count 2.57 10^3/uL (1.2-3.4); Absolute Monocyte Count 0.57 10^3/uL (0.1-0.8); Basophils % 0.2; Eosinophils % 1.3; HCT 33.9 % (36.0-46.0); HGB 11.7 g/dL (11.2-15.7); Immature Grans % 0.6; Lymphocytes % 31.3; MCH 26.2 pg (27.0-33.0); MCHC 34.5 % (32.0-36.0); MCV 76 fL (80-95); MPV 10.7 fL (8.0-11.0); Monocytes % 6.9; Neutrophils % 59.7; Platelet Count 355 10^3/uL (130-400); RBC 4.46 10^6/uL (3.93-5.22); RDW-SD 41.2 fL; WBC 8.22 10^3/uL (4.4-10.8)
[2022-08-05 09:31] LABS: HIV-1/2 Ag & Ab Screen Negative (Negative)
[2022-08-07 11:32] LABS: Hepatitis C Ab w Rflx HCV PCR Negative (Negative)
[2022-08-07 11:49] LABS: Hepatitis B Surface Ag Negative (Negative)
[2022-08-07 12:41] LABS: Varicella IgG Antibody Positive (See Note)
[2022-08-07 12:44] LABS: Rubella IgG Ab (UVM) Negative (See Note)
[2022-08-07 21:39] LABS: Syphilis IgG w/Reflex Nonreactive (Nonreactive)
[2022-09-04 11:29] LABS: Result Summary NEGATIVE; Specimen WB Whole Blood
== END 2022-08-04 01:22 | disposition home or self-care (01) ==
LOC: LBO 01:22
PROVIDERS: PCP Family Medicine; Visit Provider Advanced Practice Midwife
DX: Z34.91 Encounter for supervision of normal pregnancy, unspecified, first trimester (principal)
CPT/HCPCS: 36415; 81220; 81222; 86787; 86803; 86850; 86900; 86901; 87340; 87389; 85025; 86762; 86780

== ENCOUNTER 2022-08-04 15:01 | Outpatient (REF) | payer MEDICAID, SELFPAY ==
[2022-08-04 17:40] LABS: *AMPHETAMINES SCREEN URINE Negative (Negative); *BARBITURATES SCREEN URINE Negative (Negative); *BENZODIAZEPINES SCREEN URINE Negative (Negative); Cannabinoids THC Negative (Negative); Cocaine Screen,Urine Negative (Negative); METHADONE URINE SCREEN Negative (Negative); OPIATES URINE SCREEN Negative (Negative)
[2022-08-04 17:42] LABS: Tricyclic Antidepressants Negative (Negative)
[2022-08-11 14:21] LABS: Buprenorphine Negative ng/mL (Cutoff: 5.0); Norbuprenorphine Negative ng/mL (Cutoff: 2.5)
== END 2022-08-04 15:02 | disposition home or self-care (01) ==
LOC: LBN 15:01
PROVIDERS: PCP Family Medicine; Visit Provider Advanced Practice Midwife
DX: Z34.91 Encounter for supervision of normal pregnancy, unspecified, first trimester (principal)
CPT/HCPCS: 80307; 80348; 87086

== ENCOUNTER 2022-09-01 01:21 | Outpatient (CLI) | payer MEDICAID, SELFPAY ==
[2022-09-04 16:06] LABS: AFP 23.9 ng/mL; Calculated age at EDD 31 years; Cigarette smoking status non-Smoker; GA used in risk estimate Dates estimate; IVF Pregnancy No; Initial or repeat testing Initial testing; Insulin dependent diabetes No; Maternal Weight 213 lbs; Number of Fetuses 1; Prev Pregnancy w/NTD No; RECOMMENDED FOLLOW UP None.; Results Summary Normal risk
== END 2022-09-01 01:22 | disposition home or self-care (01) ==
LOC: LBO 01:21
PROVIDERS: PCP Family Medicine; Visit Provider Obstetrics & Gynecology Gynecology
DX: O24.112 Pre-existing type 2 diabetes mellitus, in pregnancy, second trimester; Z3A.15 15 weeks gestation of pregnancy; Z36.89 Encounter for other specified antenatal screening
CPT/HCPCS: 36415; 87491; 87591; 82105

== ENCOUNTER 2022-09-01 12:18 | Outpatient (REF) | payer MEDICAID, SELFPAY ==
[2022-09-02 12:44] LABS: Chlamydia Result Negative (Negative); GC Result Negative (Negative)
== END 2022-09-01 12:19 | disposition home or self-care (01) ==
LOC: LBN 12:18
PROVIDERS: PCP Family Medicine; Visit Provider Obstetrics & Gynecology Gynecology
DX: Z34.92 Encounter for supervision of normal pregnancy, unspecified, second trimester (principal); Z11.3 Encounter for screening for infections with a predominantly sexual mode of transmission; Z3A.15 15 weeks gestation of pregnancy
CPT/HCPCS: 87491; 87591

== ENCOUNTER → 2022-09-19 01:12 | Outpatient (CLI) | payer MEDICAID, SELFPAY ==
--- NOTE | 2022-09-19 06:40 | DI.US_ITS ---
Exam(s) US OB 2-3 TRIMESTER EXAM: US OB 2-3 TRIMESTER CLINICAL HISTORY: anatomy,Z34.91. TECHNIQUE: Transabdominal obstetrical ultrasound performed. COMPARISON: US POCUS EXAM from 07/20/2022 US POCUS EXAM from 09/18/2022 FINDINGS: Number of fetuses: One. position: Variable Placental grade: 1 Placental location: Anterior no evidence of previa. BIOMETRIC DATA: BPD: 45mm = 19+ 4 weeks HC: 167mm = 19+ 3 weeks AC: 148mm = 20+ 1 weeks FL: 30mm = 19+ 1 weeks Cisterna Magna: 3 points mm Cerebellum: 1.8 cm EFW: 304 grms greater than 97% Composite Age: 19+ 4 weeks EDC by US: 09 February 2023 Heart Rate: !ErrorBPM Amniotic fluid : Amount of fluid is within normal limits. ANATOMICAL SURVEY: Four-chambered heart: Unremarkable. LVOT: Unremarkable. RVOT: Unremarkable. Left-sided stomach: Unremarkable. urinary bladder: Unremarkable. Bilateral kidneys: Unremarkable. Three-vessel cord: Unremarkable. Cord insertion: Unremarkable. Posterior fossa:Unremarkable. ventricles: Unremarkable. nose: Unremarkable. lips: Unremarkable. palate: Unremarkable. spine: Unremarkable. Two arms and two legs: Unremarkable. IMPRESSION: 1. Single live intrauterine gestation with composite age 19+ 4 weeks.. 2. Normal anatomic survey. DATA REPOSITORY:
== END ==
PROVIDERS: PCP Family Medicine; Visit Provider Obstetrics & Gynecology Gynecology
DX: Z34.92 Encounter for supervision of normal pregnancy, unspecified, second trimester (principal)
CPT/HCPCS: 76805

== ENCOUNTER 2022-09-29 09:40 | Outpatient (REF) | payer MEDICAID, SELFPAY ==
[2022-09-30 14:42] LABS: Chlamydia Result Negative (Negative); GC Result Negative (Negative)
== END 2022-09-29 09:41 | disposition home or self-care (01) ==
LOC: LBN 09:40
PROVIDERS: Obstetrics & Gynecology; PCP Family Medicine; Visit Provider Advanced Practice Midwife
DX: Z34.92 Encounter for supervision of normal pregnancy, unspecified, second trimester (principal); Z3A.19 19 weeks gestation of pregnancy; Z11.3 Encounter for screening for infections with a predominantly sexual mode of transmission
CPT/HCPCS: 87491; 87591

== ENCOUNTER → 2022-11-30 02:29 | Outpatient (CLI) | payer MEDICAID, SELFPAY ==
--- NOTE | 2022-11-30 07:45 | DI.US_ITS ---
Exam(s) US OB SACHA WEIGHT EXAM: US OB SACHA WEIGHT CLINICAL HISTORY: growth,DIABETES,E11.9. TECHNIQUE: Transabdominal obstetrical ultrasound performed. COMPARISON: US POCUS EXAM from 07/20/2022 US POCUS EXAM from 09/18/2022 US US OB 2-3 TRIMESTER from 09/19/2022 FINDINGS:: Number of fetuses: One. position: Vertex. Placental location: Anterior. No evidence of previa. BIOMETRIC DATA: BPD: 74mm = 29+ 4 weeks HC: 272mm = 29+ 5 weeks AC: 267mm = 30+ 6 weeks FL: 55 mm = 29+ 1 weeks EFW: 1509 Gms = 89% Composite Age: 29+ 6 weeks CONNIE: February 28 Heart Rate: 146BPM Amniotic fluid index: 16.4 cm. Amount of fluid is visually within normal limits. IMPRESSION: size measuring slightly above the expected range. weight within the normal range. DATA REPOSITORY:
== END ==
PROVIDERS: PCP Family Medicine; Visit Provider Obstetrics & Gynecology
DX: Z34.93 Encounter for supervision of normal pregnancy, unspecified, third trimester (principal); E11.9 Type 2 diabetes mellitus without complications
CPT/HCPCS: 76816

== ENCOUNTER 2022-12-01 10:07 | Outpatient (CLI) | payer MEDICAID, SELFPAY ==
[2022-12-01 09:46] LABS: Abs Immature Grans 0.06 10^3/uL (0.0-0.06); Absolute Basophil Count 0.02 10^3/uL (0.0-0.2); Absolute Eosinophil Count 0.07 10^3/uL (0.0-0.7); Absolute Lymphocyte Count 1.88 10^3/uL (1.2-3.4); Absolute Monocyte Count 0.39 10^3/uL (0.1-0.8); Absolute Neutrophil Count 5.43 10^3/uL (1.2-6.7); Basophils % 0.3; Eosinophils % 0.9; HCT 31.2 % (36.0-46.0); HGB 10.6 g/dL (11.2-15.7); Immature Grans % 0.8; Lymphocytes % 23.9; MCH 25.7 pg (27.0-33.0); MCV 76 fL (80-95); MPV 10.9 fL (8.0-11.0); Neutrophils % 69.1; Platelet Count 353 10^3/uL (130-400); RBC 4.12 10^6/uL (3.93-5.22); RDW 14.6 % (11.7-14.6); RDW-SD 39.8 fL; WBC 7.85 10^3/uL (4.4-10.8)
== END 2022-12-01 10:08 | disposition home or self-care (01) ==
LOC: LBO 10:07
PROVIDERS: PCP Family Medicine; Visit Provider Obstetrics & Gynecology
DX: Z34.93 Encounter for supervision of normal pregnancy, unspecified, third trimester (principal)
CPT/HCPCS: 36415; 85025

== ENCOUNTER 2022-12-11 01:51 | Outpatient (CLI) | payer MEDICAID, SELFPAY ==
[2022-12-11] MEDS: Levalbuterol HFA 15 GM INH 4 PUFF IH (14:47)
[2022-12-11] MEDS: Inhaler, Assist Device 1 EACH MC (14:48)
--- NOTE | 2022-12-11 15:49 | W.PFT ---
Date of service: 12/11/22 Time of Service: 13:07 Pulmonary Function Test Result Indications: Dyspnea Interpretation Spirometry: There is no airflow limitation. No significant bronchodilator response. There is expiratory loop flattening. Lung Volumes: Normal lung volumes Diffusion Capacity: Normal diffusion Airway Pressure: Normal airways resistance Impression Normal pulmonary function testing with blunting of the expiratory flow curve which could be indicative of variable intrathoracic obstruction. This could represent tracheomalacia or possibly endobronchial obstruction. Recommend high resolution CT to rule out these possibilities if clinically appropriate. Clinical Correlation therefore is recommended.
== END 2022-12-11 01:52 | disposition home or self-care (01) ==
LOC: RT 01:52
PROVIDERS: PCP Family Medicine; Visit Provider Family Medicine
DX: R06.00 Dyspnea, unspecified (principal)
CPT/HCPCS: 94060; 94726; 94729

== ENCOUNTER 2023-01-05 01:02 | Outpatient (CLI) | payer MEDICAID, SELFPAY ==
--- NOTE | 2023-01-05 07:45 | DI.US_ITS ---
Exam(s) US OB SACHA WEIGHT EXAM: US OB SACHA WEIGHT CLINICAL HISTORY: growth,gestational diabetes,O24.419. TECHNIQUE: Transabdominal obstetrical ultrasound performed. COMPARISON: US US OB SACHA WEIGHT from 11/30/2022 FINDINGS: Number of fetuses: 1 position: CEPHALIC Placental location: FUNDAL No evidence of previa. BIOMETRIC DATA: BPD: 9.02 cm, 36 weeks 4 days HC: 32.42 cm, 36 weeks 5 days AC: 32.38 cm, 36 weeks 2 days FL: 7.03 cm, 36 weeks EFW: 2902.18 g, 6 lb 6 oz, 49.6 % Composite Age: 36 weeks 3 days CONNIE: 01/30/2023 Heart Rate: 146 bpm Amniotic fluid index: 12.43 cm. Visually, amount of fluid is within normal limits. IMPRESSION: 1. Single live intrauterine gestation as above. 2. Estimated weight is 2902gms. This is the 50th percentile. 3. Amniotic fluid index is 12.4 cm. Visually within normal limits. DATA REPOSITORY:
[2023-02-06 15:41] VITALS: BP 150/92; PULSE 88; RESP 16
== END 2023-02-06 16:01 ==
LOC: DI 01:02 → OBS 02-06 15:37
PROVIDERS: PCP Family Medicine; Visit Provider Obstetrics & Gynecology
DX: O24.410 Gestational diabetes mellitus in pregnancy, diet controlled (principal); Z3A.36 36 weeks gestation of pregnancy
CPT/HCPCS: 76816; 80053; 85025

== ENCOUNTER 2023-01-10 11:00 | Outpatient (CLI) | payer MEDICAID, SELFPAY ==
[2023-01-10 11:15] VITALS: BP 123/57; PULSE 97; TEMP 36.6
[2023-01-10 20:09] VITALS: BP 123/57; PULSE 97; TEMP 36.6
--- NOTE | 2023-01-10 20:09 | W.OBNST ---
Date of service: 01/10/23 Time of Service: 12:00 NST Evaluation Reason for NST Reasons for Nonstress Test: GDM- PO MEDICATION Gestational Age Gestational Age in Weeks and Days: 34 Weeks and 3Days Vital Signs Blood Pressure: 123/57 Pulse: 97 Temperature: 97.9 F NST Information Date on Monitor: 01/10/23 Time on Monitor: 11:00 Date off Monitor: 01/10/23 Time off Monitor: 12:04 Total Time on Monitor: 64 NST Interventions: None NST Evaluation Patient States Movement: Present FHR Baseline: 135 Variability: Moderate 6-25 bpm Accelerations: 15x15 Decelerations: None NST Results: Reactive Note Ultrasound Done: N/A. NST Note NST Reviewed and Verified by: Maritza Jim
== END 2023-01-10 12:06 | disposition home or self-care (01) ==
LOC: BCD 11:01 → OBS 11:13
PROVIDERS: PCP Family Medicine; Visit Provider Obstetrics & Gynecology
DX: O24.113 Pre-existing type 2 diabetes mellitus, in pregnancy, third trimester (principal); Z3A.34 34 weeks gestation of pregnancy
CPT/HCPCS: 59025

== ENCOUNTER 2023-01-18 04:08 | Outpatient (CLI) | payer MEDICAID, SELFPAY ==
[2023-01-18 09:10] VITALS: BP 134/68; PULSE 109; TEMP 36.5
== END 2023-01-18 09:16 | disposition home or self-care (01) ==
LOC: BCD 04:09 → OBS 09:09
PROVIDERS: PCP Family Medicine; Visit Provider Obstetrics & Gynecology Gynecology
DX: O24.410 Gestational diabetes mellitus in pregnancy, diet controlled (principal); Z3A.34 34 weeks gestation of pregnancy
CPT/HCPCS: 59025

== ENCOUNTER 2023-01-22 05:55 | Outpatient (CLI) | payer MEDICAID, SELFPAY ==
[2023-01-22 11:05] VITALS: BP 133/73; PULSE 104; TEMP 37
[2023-01-22 11:27] VITALS: BP 133/73; PULSE 104
[2023-01-25 12:15] VITALS: BP 133/73; PULSE 104; TEMP 37
--- NOTE | 2023-01-25 12:15 | W.OBNST ---
Date of service: 01/22/23 Time of Service: 11:30 NST Evaluation Reason for NST Reasons for Nonstress Test: GDM- PO MEDICATION Gestational Age Gestational Age in Weeks and Days: 36 Weeks and 1Days Test and Monitor Explained Test/Monitor Explained: Test Explained and Monitor Explained Vital Signs Blood Pressure: 133/73 Pulse: 104 Temperature: 98.6 F NST Information Date on Monitor: 01/22/23 Time on Monitor: 11:05 Date off Monitor: 01/22/23 Time off Monitor: 11:45 Total Time on Monitor: 40 NST Evaluation Patient States Movement: Present FHR Baseline: 150 Variability: Moderate 6-25 bpm Accelerations: 15x15 Decelerations: None NST Results: Reactive Note Ultrasound Done: N/A. NST Note NST Reviewed and Verified by: Maritza Jim
== END 2023-01-22 11:52 | disposition home or self-care (01) ==
LOC: BCD 06:02 → OBS 10:59
PROVIDERS: PCP Family Medicine; Visit Provider Obstetrics & Gynecology
DX: O24.410 Gestational diabetes mellitus in pregnancy, diet controlled (principal); Z3A.36 36 weeks gestation of pregnancy
CPT/HCPCS: 59025

== ENCOUNTER 2023-01-26 07:35 | Outpatient (CLI) | payer MEDICAID, SELFPAY ==
[2023-01-26 09:02] VITALS: BP 126/79; PULSE 107; TEMP 37
[2023-01-26 09:30] VITALS: BP 126/79; PULSE 107
== END 2023-01-26 09:35 | disposition home or self-care (01) ==
LOC: BCD 07:35 → OBS 09:00
PROVIDERS: PCP Family Medicine; Visit Provider Obstetrics & Gynecology Gynecology
DX: O24.410 Gestational diabetes mellitus in pregnancy, diet controlled (principal); Z3A.36 36 weeks gestation of pregnancy
CPT/HCPCS: 59025

== ENCOUNTER 2023-01-30 05:01 | Inpatient (IN) | payer MEDICAID, SELFPAY ==
[2023-01-30] VITALS (12 sets, daily range): BP systolic 112–129; BP diastolic 61–86; PULSE 64–112; RESP 16–20; TEMP 36.6–36.9; O2SAT 97–99; BMI 31.7
[2023-01-30 06:03] LABS: HCT 32.3 % (36.0-46.0); HGB 11.2 g/dL (11.2-15.7); MCH 26.2 pg (27.0-33.0); MCHC 34.7 % (32.0-36.0); MCV 76 fL (80-95); MPV 10.9 fL (8.0-11.0); Platelet Count 305 10^3/uL (130-400); RBC 4.27 10^6/uL (3.93-5.22); RDW 15.4 % (11.7-14.6); RDW-SD 41.8 fL; WBC 7.86 10^3/uL (4.4-10.8)
[2023-01-30] MEDS: Sodium Citrate 30 ML CUP PO (07:02)
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
[2023-01-30] MEDS: ceFAZolin 2 GM/50 ML BAG IVPB (07:37)
[2023-01-30] MEDS: Lactated Ringers 1,000 ML 200 ML IV ×2 (07:41→20:47)
[2023-01-30] MEDS: AZITHROMYCIN 500 MG in Normal Saline 250 ML 250 MG IVPB (07:57)
[2023-01-30] MEDS: Bupivacaine 0.25% Pres-Free 30 ML VIAL (08:07)
--- NOTE | 2023-01-30 08:20 | PLAC_PTH ---
PATIENT: Jolynn Bullock LOC: OBS U#:[id number] AGE/SX: 32/F ROOM: OBS.303 RE01/30/[address]: Buffy Lantigua DO : 1990 BED: A DIS: 02/02/2023 SPEC #: [id number] RECD: 01/30/23 13:00 STATUS: ARSLAN REQ #: [id number] SANDEE: 01/30/23 08:[address]: Buffy Lantigua DEPT: Surgical Specimen RECD BY: Elsa Delaney ENTERED: 01/30/23 13:01 SP TYPE: PLAC OTHR DR: Rocael Tam MD Tissues: 1 - PLACENTA (3RD TRIMESTER) Procedures: GROSS AND MICRO LEVEL 5 Comments: [id number]
--- NOTE | 2023-01-30 08:48 | W.PM.OBCSECT ---
Date of service: 01/30/23 Time of Service: 08:48 Operative Note Operative Note Delivery Method: Scheduled and Repeat Previous LT Incision: Yes DATE OF PROCEDURE: 01/30/23 PRE-OP DIAGNOSES: IUP at 37-2/7, diabetes, previous , history loss POST-OP DIAGNOSES: same PROCEDURE: Repeat low-transverse section Assisting Surgeon: Buffy Lantigua Short Piece Handler: Maritza Jim Anesthesia: local and spinal Estimated blood loss (mL): 300 Pathology: other (Placenta for exam) Complications: None Patient was transported to: floor Patient's condition: stable Indications: at 37 weeks and 2 days. History of pregestational diabetes, controlled with medications. History of previous poor outcome with emergent section at 28 weeks for placental abruption, hemorrhage, stillbirth. Findings: Normal-appearing tubes, ovaries, uterus. 3 cm intramural fibroid at the left lower uterine segment. Delivery of a viable male from the vertex presentation. Procedure Description: After full informed consent was obtained, patient had taken the operating suite with IV running. She is placed in the seated position and spinal anesthesia was administered with some difficulty due to patient discomfort. She was then placed in dorsal supine position with leftward tilt and prepped and draped in usual sterile fashion. She had received antibiotics with Ancef, and Zithromax for surgical site infection prophylaxis. She had pneumatic compression stockings for DVT prophylaxis. She had a vaginal preparation and Lambert catheter inserted for continuous bladder drainage. Anesthesia was tested and found to be adequate. The incision line was infiltrated with quarter percent Marcaine. Her previous incision was used for her surgical site. Skin incision was made and carried down to the underlying fascia. The fascia was nicked in the midline and fascial incision extended laterally. The rectus muscles were in the midline and the peritoneum identified, tented up, and entered sharply. With meticulous sharp dissection the peritoneal incision was extended superiorly and inferiorly and the bladder blade inserted. The vesicouterine peritoneum was identified tented up and entered sharply and the bladder flap created. The bladder blade was then reinserted and a low transverse uterine incision was made and extended bluntly laterally. There is artificial rupture of membranes for clear fluid and a fetus that was delivered from the vertex presentation without evidence of nuchal cord. Shoulders followed with ease. Mom was able to visualize the delivery with the windowed drape. Three-vessel cord was noted clamped x 2 and cut after appropriate delayed cord clamping. The baby was then handed off to the waiting water resources technical officer. At this point cord blood sample was obtained and the placenta was manually expressed from the uterus. Uterus was exteriorized and cleared of all clot and debris. The placenta appeared intact and was sent for pathologic examination due to her previous poor outcome. At this point the uterine incision was closed with 2 layers first layer being 0 Monocryl suture in a running locked fashion, second being an imbricating stitch. The uterus then was returned to the abdomen and uterine incision inspected and noted to be hemostatic. The abdomen was irrigated with copious amounts of normal saline and the incision again reinspected and noted to be hemostatic. The fascial incision was then closed using 0 Vicryl suture in a running fashion. Subcutaneous tissue irrigated and reapproximated with 3-0 Vicryl suture in a simple interrupted fashion. Skin edge was then reapproximated in a subcuticular fashion with 4-0 undyed Monocryl. Steri-Strips and sterile dressing were placed. Patient was returned to the center with a Lambert catheter draining clear yellow urine and in stable condition. EBL: 300 mL Findings: Normal-appearing tubes, ovaries, uterus. Small intramural fibroid at the lower uterine segment. Delivered a viable male infant from the vertex position. Complications: None apparent Fluids: Fluid per anesthesia Pathology: Placenta for examination. Weight and Apgars will be forthcoming.
--- NOTE | 2023-01-30 09:00 | W.ANESPOSTOP ---
Postoperative Evaluation Date, Time and Location Date Performed: 01/30/23 Time Performed: 09:00 Patient Location: Obstetrics Vital Signs Most Recent Imported Vital Signs: Most Recent Vital Signs Temp Pulse Resp BP Pulse Ox 36.9 C 95 H 16 120/68 99 01/30/23 08:45 01/30/23 08:45 01/30/23 08:45 01/30/23 08:45 01/30/23 08:45 Pain Score Most Recent Pain Score: Most Recent Pain Score Pain Level [Abdomen] 0 01/30/23 08:45 Assessment Mental Status: Awake (Alert & Oriented to Patient Baseline) Airway and Respiratory Function: Patent airway with normal (patient baseline) respiratory exam Cardiovascular Function: Hemodynamically Stable Hydration Status: Adequately Hydrated Nausea & Vomiting: No Nausea or Vomiting Pain: Pt. Denies Any Pain Peripheral Nerve Block: Patient did not receive a nerve block
[2023-01-30] MEDS: oxyCODONE 5 mg/Acetaminophen 325 mg TAB PO (11:26)
[2023-01-30] MEDS: Lactated Ringers 1,000 ML 120 ML IV (12:29)
[2023-01-30] MEDS: Ketorolac 30 MG/ML VIAL 15 MG IVP ×3 (12:30→23:55)
[2023-01-30] MEDS: diphenhydrAMINE 50 MG/ML VIAL 25 MG IVP (12:31)
--- NOTE | 2023-01-30 15:48 | W.PM.OBPNV1 ---
Date of service: 01/30/23 Time of Service: 15:48 Assessment and Plan Assessment and plan (1) Status post repeat low transverse section: Status: Acute Assessment and plan: Postop day 0 status post repeat low-transverse section. Doing well. No issues or concerns. Routine and postoperative care expected. CBC in the morning. Subjective Subjective Interval history: Patient seen and examined this evening. Vital signs are stable. Urine output is appropriate. Pain is well-controlled. She is breast-feeding without difficulty. All questions were answered. baby status: Doing well, Nursing well and Strong Bonding Observed feeding status: Exclusively breast feeding Exam Physical Exam Vital signs: Temp Pulse Resp BP Pulse Ox 98.1 F 70 16 116/66 98 01/30/23 12:00 01/30/23 12:00 01/30/23 10:00 01/30/23 12:00 01/30/23 12:00 Results Hemoglobin/Hematocrit: Hgb 11.2 g/dL (11.2-15.7) 01/30/23 06:00 Hct 32.3 % (36.0-46.0) L 01/30/23 06:00 Abnormal Lab Findings: Abnormal Labs 01/30/23 06:00 Hct 32.3 L MCV 76 L MCH 26.2 L RDW 15.4 H
[2023-01-30] MEDS: metFORMIN 500 MG TAB PO (18:38)
[2023-01-31 02:00] VITALS: BP 109/65; PULSE 100; RESP 20; TEMP 36.8; O2SAT 98
[2023-01-31] MEDS: Ketorolac 30 MG/ML VIAL 15 MG IVP (06:00)
[2023-01-31] MEDS: oxyCODONE 5 mg/Acetaminophen 325 mg TAB PO ×3 (06:22→19:58)
[2023-01-31 06:29] LABS: Abs Immature Grans 0.06 10^3/uL (0.0-0.06); Absolute Basophil Count 0.03 10^3/uL (0.0-0.2); Absolute Eosinophil Count 0.12 10^3/uL (0.0-0.7); Absolute Lymphocyte Count 1.52 10^3/uL (1.2-3.4); Absolute Monocyte Count 0.69 10^3/uL (0.1-0.8); Absolute Neutrophil Count 8.07 10^3/uL (1.2-6.7); Basophils % 0.3; Eosinophils % 1.1; HCT 30.4 % (36.0-46.0); HGB 10.5 g/dL (11.2-15.7); Immature Grans % 0.6; Lymphocytes % 14.5; MCH 26.1 pg (27.0-33.0); MCHC 34.5 % (32.0-36.0); MCV 76 fL (80-95); MPV 11.7 fL (8.0-11.0); Monocytes % 6.6; Neutrophils % 76.9; Platelet Count 291 10^3/uL (130-400); RBC 4.02 10^6/uL (3.93-5.22); RDW 15.4 % (11.7-14.6); RDW-SD 42.2 fL; WBC 10.49 10^3/uL (4.4-10.8)
[2023-01-31 07:00] VITALS: BP 128/81; PULSE 99; RESP 19; TEMP 36.9; O2SAT 98
--- NOTE | 2023-01-31 07:35 | W.PM.OBPNV1 ---
Date of service: 01/31/23 Time of Service: 07:35 Assessment and Plan Assessment and plan (1) Status post repeat low transverse section: Status: Acute Assessment and plan: Postoperative day #1 status post repeat low-transverse section. Overall doing well. She does have an upper respiratory viral syndrome. This is slowly improving. She will continue with routine postoperative and care. Ambulate. Oral pain medication. Anticipate discharge home tomorrow if stable. Hemoglobin is stable this morning. Patient declines circumcision for her male infant. Exam Physical Exam Vital signs: Temp Pulse Resp BP Pulse Ox 98.4 F 99 H 19 128/81 98 01/31/23 07:00 01/31/23 07:00 01/31/23 07:00 01/31/23 07:00 01/31/23 07:00 Vital Signs Reviewed: Yes Narrative: Patient seen and examined this morning. Doing well. Pain is well-controlled. She has been up to the chair. She does have upper respiratory symptoms with some congestion. No fevers. Denies shortness of breath or chest pain. Bleeding is appropriate. Respiratory Exam Respiratory Exam: Normal Cardiovascular Exam Cardiovascular Exam: Normal Abdominal Exam Abdomen: Tender Fundal Exam Fundus: Below Umbilicus and Firm Extremities Exam Extremity Exam: Normal; negative Calf Tenderness or Edema Psychiatric Exam Psychiatric Exam: Normal Results Hemoglobin/Hematocrit: Hgb 10.5 g/dL (11.2-15.7) L 01/31/23 06:00 Hct 30.4 % (36.0-46.0) L 01/31/23 06:00 Abnormal Lab Findings: Abnormal Labs 01/30/23 01/31/23 06:00 06:00 Hgb 10.5 L Hct 32.3 L 30.4 L MCV 76 L 76 L MCH 26.2 L 26.1 L RDW 15.4 H 15.4 H MPV 11.7 H Absolute Neutrophils 8.07 H
[2023-01-31 11:00] VITALS: BP 134/79; PULSE 103; RESP 20; TEMP 36.9; O2SAT 100
[2023-01-31] MEDS: Docusate Sodium 100 MG CAP PO (11:08)
[2023-01-31] MEDS: Loratidine 10 MG TAB PO (11:15)
[2023-01-31] MEDS: metFORMIN 500 MG TAB PO ×2 (11:15→19:58)
[2023-01-31 16:40] VITALS: BP 156/92
[2023-01-31] MEDS: Ibuprofen 600 MG TAB PO (16:50)
[2023-01-31 16:53] VITALS: BP 148/84; PULSE 116; RESP 20; TEMP 36.9; O2SAT 100
--- NOTE | 2023-01-31 17:24 | W.PM.OBPNV1 ---
Date of service: 01/31/23 Time of Service: 17:24 Assessment and Plan Assessment and plan (1) Status post repeat low transverse section: Status: Acute (2) Dyspnea: Status: Acute Assessment and plan: Pt with some dyspnea and a cough. Afebrile, normal wbc. tachycardic. Will get adequate pain control and then reassess. Will do covid test. Will consider albuterol inhaler prn. Continue incentive spirometry. After further reading in her chart she does have a h/o dyspnea and had a pulmonary w/u with CT scheduled in Feb for possible expiratory obstruction. Subjective Subjective Narrative: called to evaluate pt due to some difficulty breathing. She says that throughout the course of the day she has developed a cough and feels that it is hard to take a deep breath. She did not have an insentive spirometer until just before I saw. When she initially started using it she was only getting it up to 400 but then was able to get to 1000. She has not had pain medication since 11am. She did, incidentally, have a pulmonary evaluation in Dec due to dyspnea. She had PFTs that showed expiratory obstruction with possible intrathoracic obstruction or osteomalacia. She has a CT scan scheduled for Feb after delivery. Exam Physical Exam Vital signs: Temp Pulse Resp BP Pulse Ox 98.4 F 116 H 20 148/84 H 100 01/31/23 16:53 01/31/23 16:53 01/31/23 16:53 01/31/23 16:53 01/31/23 16:53 Vital Signs Reviewed: Yes Detailed HEENT Exam Comments: Taking somewhat shallow breaths. Her cough seems triggered by deep breathing and she is clearly in pain with coughing. Detailed Respiratory Exam Comments: Clear to auscultation b/l. possible slight wheeze on left side. Abdominal Exam Comments: Dressing clean and dry Fundal Exam Comment: mildly tender Results Hemoglobin/Hematocrit: Hgb 10.5 g/dL (11.2-15.7) L 01/31/23 06:00 Hct 30.4 % (36.0-46.0) L 01/31/23 06:00 Abnormal Lab Findings: Abnormal Labs 01/30/23 01/31/23 06:00 06:00 Hgb 10.5 L Hct 32.3 L 30.4 L MCV 76 L 76 L MCH 26.2 L 26.1 L RDW 15.4 H 15.4 H MPV 11.7 H Absolute Neutrophils 8.07 H
[2023-01-31 18:29] LABS: Source Nasal/Nares
[2023-01-31 19:06] LABS: COVID-19 PCR Negative (Negative)
[2023-01-31 20:09] VITALS: BP 125/68; PULSE 114; RESP 18; TEMP 37.1
[2023-02-01] MEDS: Ibuprofen 600 MG TAB PO ×4 (00:19→18:22)
[2023-02-01 00:24] VITALS: BP 136/81; RESP 16; TEMP 36.9
[2023-02-01 04:00] VITALS: BP 129/80; PULSE 99; RESP 24; TEMP 36.7; O2SAT 100
[2023-02-01] MEDS: oxyCODONE 5 mg/Acetaminophen 325 mg TAB PO (04:29)
[2023-02-01] MEDS: Inhaler, Assist Device 1 EACH MC (04:49)
[2023-02-01] MEDS: Albuterol HFA 8 GM 60 PUFF INH IH (04:49)
[2023-02-01] MEDS: Docusate Sodium 100 MG CAP PO (06:08)
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
--- NOTE | 2023-02-01 07:57 | W.PM.OBPNV1 ---
Date of service: 02/01/23 Time of Service: 07:57 Assessment and Plan Assessment and plan (1) Status post repeat low transverse section: Status: Acute Assessment and plan: Patient is postop day #2 status post repeat low-transverse section. From her surgical standpoint she is doing well. Pain is well-controlled. Appetite is normal. She did have an episode of coughing and significant shortness of breath last night. Pulmonary consultation was performed today. CT scan will be done today. Will add TSH for completeness of workup. All questions were answered. Appreciate pulmonology input for this very pleasant patient. (2) Dyspnea: Status: Acute Subjective Subjective Interval history: Patient seen and examined this morning. Feeling better. Had episodes of significant coughing and chest tightness last night. She was seen by on-call provider. Albuterol nebulizers ordered. COVID swab performed and is negative. RSV, influenza swab will be performed this morning. Pulmonary consultation today. Her pain is well-controlled. Her appetite is appropriate. She is ambulating and breast-feeding without significant difficulty. Exam Physical Exam Vital signs: Temp Pulse Resp BP Pulse Ox 98.1 F 99 H 24 129/80 100 02/01/23 04:00 02/01/23 04:00 02/01/23 04:00 02/01/23 04:00 02/01/23 04:00 Vital Signs Reviewed: Yes Notable Details: Less tachycardic today. Pulse ox is appropriate. Constitutional Constitutional: no acute distress HEENT Exam HEENT Exam: Normal Neck Exam Neck Exam: Normal Detailed Respiratory Exam Respiratory: Absent rales, rhonchi or wheezes Comments: Patient Abdominal Exam Abdomen: Tender Comments: Incision dressed Fundal Exam Fundus: Firm Extremities Exam Extremity Exam: Normal and Edema (Bilateral, 1+); negative Calf Tenderness Neurological Exam Neurological Exam: Normal Results Hemoglobin/Hematocrit: Hgb 10.5 g/dL (11.2-15.7) L 01/31/23 06:00 Hct 30.4 % (36.0-46.0) L 01/31/23 06:00 Abnormal Lab Findings: Abnormal Labs 01/30/23 01/31/23 06:00 06:00 Hgb 10.5 L Hct 32.3 L 30.4 L MCV 76 L 76 L MCH 26.2 L 26.1 L RDW 15.4 H 15.4 H MPV 11.7 H Absolute Neutrophils 8.07 H
[2023-02-01 08:00] VITALS: BP 142/89; PULSE 103; RESP 22; TEMP 36.7; O2SAT 98
[2023-02-01] MEDS: metFORMIN 500 MG TAB PO ×2 (08:14→17:15)
[2023-02-01] MEDS: Loratidine 10 MG TAB PO (08:14)
--- NOTE | 2023-02-01 09:07 | DI.CT_ITS ---
Exam(s) CT CHEST HIGH RESOLUTION EXAM: CT CHEST HIGH RESOLUTION CLINICAL HISTORY: concern for tracheobronchomalacia/endotracheal mas. TECHNIQUE: Imaging protocol: Axial computed tomography images were obtained and coronal and sagittal reformatted images were created and reviewed. Additional high-resolution images performed during inspiration and expiration. COMPARISON: No exams were available for comparison FINDINGS: Tracheobronchial tree: Patent. No visible mass. No mucous plugging or wall thickening. No evidence of collapse with inspiration or expiration. No bronchiectasis Mediastinum and Sonja: No dominant adenopathy or fluid collection. Pulmonary parenchyma: No consolidation or dominant measurable mass. No architectural distortion. Pleura: No effusion or pneumothorax. Heart: The heart is not dilated. No coronary artery calcifications are seen. Aorta: Thoracic aorta non-dilated. Upper abdomen: Unremarkable. Lymph nodes: Within normal limits. Bones:Normal. Tubes, Catheters, and Lines: None IMPRESSION: Normal CT of the Chest. No evidence of endotracheal or endobronchial mass. RADIATION DOSE DELIVERED: Total DLP DATA REPOSITORY: All CT scans at this facility are submitted to the National Radiology Data Registry (NRDR) Dose Index Registry (DIR) with the [employer] (ACR). RADIATION OPTIMIZATION: All CT scans at this facility use at least one of these dose optimization te chniques: automated exposure control; mA and/or kV adjustment per patient size (includes targeted exa ms where dose is matched to clinical indication); or iterative reconstruction.
[2023-02-01 09:23] LABS: Abs Immature Grans 0.06 10^3/uL (0.0-0.06); Absolute Basophil Count 0.03 10^3/uL (0.0-0.2); Absolute Eosinophil Count 0.16 10^3/uL (0.0-0.7); Absolute Lymphocyte Count 2.56 10^3/uL (1.2-3.4); Absolute Neutrophil Count 6.11 10^3/uL (1.2-6.7); Basophils % 0.3; Eosinophils % 1.7; HCT 30.5 % (36.0-46.0); HGB 10.5 g/dL (11.2-15.7); Immature Grans % 0.6; Lymphocytes % 26.6; MCH 26.3 pg (27.0-33.0); MCHC 34.4 % (32.0-36.0); MCV 76 fL (80-95); MPV 10.8 fL (8.0-11.0); Monocytes % 7.3; Neutrophils % 63.5; Platelet Count 319 10^3/uL (130-400); RDW 15.7 % (11.7-14.6); WBC 9.62 10^3/uL (4.4-10.8)
[2023-02-01 09:46] LABS: TSH (W/Ref FT4) 2.43 uIU/mL (0.36-3.74)
[2023-02-01 09:58] LABS: COVID-19 PCR Negative (Negative); Influenza A PCR Negative (Negative); Influenza B PCR Negative (Negative); RSV PCR Negative (Negative)
[2023-02-01 10:06] LABS: Source Nasopharynx
[2023-02-01 12:00] VITALS: BP 151/83; PULSE 111; RESP 22; TEMP 36.5; O2SAT 100
[2023-02-01] MEDS: Acetaminophen 325 MG TAB 650 MG PO ×3 (12:17→22:52)
[2023-02-01 14:16] VITALS: BP 143/70
[2023-02-01 19:00] VITALS: BP 143/77; PULSE 106; RESP 18; TEMP 37; O2SAT 98
[2023-02-02] MEDS: Ibuprofen 600 MG TAB PO ×2 (01:18→07:56)
[2023-02-02] MEDS: Acetaminophen 325 MG TAB 650 MG PO ×3 (03:23→11:52)
[2023-02-02] MEDS: Loratidine 10 MG TAB PO (07:55)
[2023-02-02] MEDS: metFORMIN 500 MG TAB PO (07:55)
[2023-02-02] MEDS: Docusate Sodium 100 MG CAP PO (07:56)
[2023-02-02 08:00] VITALS: BP 129/72; PULSE 105; RESP 22; TEMP 36.3; O2SAT 98
[2023-02-02 11:55] VITALS: BP 151/91; PULSE 105; RESP 22; TEMP 36.6; O2SAT 98
[2023-02-02 12:00] VITALS: BP 158/97
[2023-02-02 12:20] VITALS: BP 151/96
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
== END 2023-02-02 12:50 | disposition home or self-care (01) | DRG 787 ==
PROVIDERS: Obstetrics & Gynecology; Admitting Provider Obstetrics & Gynecology; PCP Family Medicine; Visit Provider Obstetrics & Gynecology
PROC: 10D00Z1 Extraction of Products of Conception, Low, Open Approach (ICD-10-PCS; CPT 59514; principal; 2023-01-30 07:30)
DX: O24.425 Gestational diabetes mellitus in childbirth, controlled by oral hypoglycemic drugs (principal); O99.12 Other diseases of the blood and blood-forming organs and certain disorders involving the immune mechanism complicating childbirth; O99.354 Diseases of the nervous system complicating childbirth; Z37.0 Single live birth; O34.211 Maternal care for low transverse scar from previous cesarean delivery; Z3A.37 37 weeks gestation of pregnancy; Z79.84 Long term (current) use of oral hypoglycemic drugs; O99.62 Diseases of the digestive system complicating childbirth; O99.344 Other mental disorders complicating childbirth; D56.8 Other thalassemias; G43.909 Migraine, unspecified, not intractable, without status migrainosus; M54.42 Lumbago with sciatica, left side; M54.41 Lumbago with sciatica, right side; K21.9 Gastro-esophageal reflux disease without esophagitis; N85.8 Other specified noninflammatory disorders of uterus; O75.89 Other specified complications of labor and delivery; F43.10 Post-traumatic stress disorder, unspecified; O75.4 Other complications of obstetric surgery and procedures; R00.0 Tachycardia, unspecified; O99.53 Diseases of the respiratory system complicating the puerperium; R05.9 Cough, unspecified; R06.00 Dyspnea, unspecified
CPT/HCPCS: 59514; 36415; 71250; 85027; 86850; 86900; 86901; 87635; 87637; 84443; 85025; 88307; J0456; J0690; J1200; J1885; J2371; J2405; J3010

== ENCOUNTER 2023-02-04 08:36 | Outpatient (CLI) | payer MEDICAID, SELFPAY ==
[2023-02-04 10:11] VITALS: BP 144/96; PULSE 92; RESP 20; TEMP 36.7; O2SAT 98
[2023-02-04] MEDS: Labetalol 100 MG TAB PO (10:25)
== END 2023-02-04 10:25 ==
PROVIDERS: PCP Family Medicine; Visit Provider Obstetrics & Gynecology
DX: O13.5 Gestational [pregnancy-induced] hypertension without significant proteinuria, complicating the puerperium
CPT/HCPCS: 99211

== ENCOUNTER 2023-02-06 15:57 | Outpatient (CLI) | payer MEDICAID, SELFPAY ==
[2023-02-06 15:57] VITALS: BP 150/92; PULSE 88; RESP 16
[2023-02-06] MEDS: Labetalol 100 MG TAB PO (16:06)
[2023-02-06 16:16] LABS: HCT 33.2 % (36.0-46.0); HGB 11.2 g/dL (11.2-15.7); MCH 25.7 pg (27.0-33.0); MCHC 33.7 % (32.0-36.0); MCV 76 fL (80-95); MPV 10.3 fL (8.0-11.0); Platelet Count 456 10^3/uL (130-400); RBC 4.36 10^6/uL (3.93-5.22); RDW 15.5 % (11.7-14.6); RDW-SD 43.1 fL; WBC 5.69 10^3/uL (4.4-10.8)
[2023-02-06 16:32] LABS: ALT 50 U/L (14-59); AST 21 U/L (15-37); Albumin 3.2 g/dL (3.4-5.0); Alkaline Phosphatase 59 U/L (46-116); Anion Gap 9.8 mmol/L (3-11); BUN 15 mg/dL (7-18); Bilirubin, Total 0.3 mg/dL (0.2-1.0); CO2 26.2 mmol/L (21.0-32.0); CREATININE 0.7 mg/dL (0.55-1.02); Calcium 11.1 mg/dL (8.5-10.1); Chloride 106 mmol/L (98-107); Estimated GFR 118.51 (mL/min/1.73m2); Glucose 84 mg/dL (74-106); Potassium 3.8 mmol/L (3.5-5.1); Sodium 142 mmol/L (136-145); Total Protein 7.6 g/dL (6.4-8.2)
[2023-02-06 16:37] VITALS: BP 143/93; PULSE 84; TEMP 36.8
--- NOTE | 2023-02-06 17:08 | W.PM.OBPNV1 ---
Date of service: 02/06/23 Time of Service: 17:08 Assessment and Plan Assessment and plan (1) Hypertension affecting : Status: Acute Assessment and plan: Discharge home. Precautions given. Increase labetalol to 200 mg twice daily. Follow-up in 48 hours. Exam Physical Exam Vital signs: Temp Pulse Resp BP 98.3 F 84 16 143/93 H 02/06/23 16:37 02/06/23 16:37 02/06/23 15:57 02/06/23 16:37 Narrative: Patient seen and examined after receiving a second dose of labetalol, 100 mg. Laboratory studies are normal. Headache is improving. Will discharge to home and follow-up in 48 hours. Increase labetalol to 200 mg twice daily. Return if symptoms worsen. Results Hemoglobin/Hematocrit: Hgb 11.2 g/dL (11.2-15.7) 02/06/23 16:05 Hct 33.2 % (36.0-46.0) L 02/06/23 16:05 Abnormal Lab Findings: Abnormal Labs 02/06/23 16:05 Hct 33.2 L MCV 76 L MCH 25.7 L RDW 15.5 H Plt Count 456 H Calcium 11.1 H Albumin 3.2 L
== END 2023-02-06 16:43 | disposition home or self-care (01) ==
LOC: BCD 16:01 → OBS 16:03
PROVIDERS: PCP Family Medicine; Visit Provider Obstetrics & Gynecology
DX: O13.5 Gestational [pregnancy-induced] hypertension without significant proteinuria, complicating the puerperium (principal)
CPT/HCPCS: 80053; 85027; 99211

== ENCOUNTER → 2023-02-21 01:08 | Outpatient (CLI) | payer MEDICAID, SELFPAY ==
--- NOTE | 2023-02-21 08:15 | DI.CT_ITS ---
Exam(s) CT CHEST HIGH RESOLUTION EXAM: CT CHEST HIGH RESOLUTION CLINICAL HISTORY: expiratory blunting with SOB.SOB,ABNL PFT,R06.02,R94.2. TECHNIQUE: Multi planar reconstructions were performed. CONTRAST MATERIAL: None COMPARISON: CT CT CHEST HIGH RESOLUTION from 02/01/2023 FINDINGS: CHEST: LUNGS: There are no confluent infiltrates, pleural effusions, nor ominous pulmonary nodules. No evid ence of obvious interstitial disease. No bullae. There are no significant focal findings in the tra gregorio and mainstem bronchi and there is no evidence of bronchiectasis. MEDIASTINUM: There is no obvious hilar nor mediastinal adenopathy. No subcarinal adenopathy. Partial ly visualized thyroid gland appears unremarkable.There shoddy lymph nodes noted in both axillary edwardo ons. There is no supraclavicular adenopathy. CARDIAC: Heart size is normal. There is no pericardial effusion.Caliber of the thoracic aorta is wit hin normal limits. VISUALIZED UPPER ABDOMEN:No adrenal masses. No splenomegaly. OSSEOUS: No significant osseous lesions.Fractures.. IMPRESSION: No significant findings on this noninfused CT scan of the chest. RADIATION DOSE DELIVERED: Total DLP DATA REPOSITORY: All CT scans at this facility are submitted to the National Radiology Data Registry (NRDR) Dose Index Registry (DIR) with the [employer] (ACR). RADIATION OPTIMIZATION: All CT scans at this facility use at least one of these dose optimization te chniques: automated exposure control; mA and/or kV adjustment per patient size (includes targeted exa ms where dose is matched to clinical indication); or iterative reconstruction.
== END ==
PROVIDERS: PCP Family Medicine; Visit Provider Physician Assistant Surgical
DX: R06.02 Shortness of breath (principal); R94.2 Abnormal results of pulmonary function studies
CPT/HCPCS: 71250

== ENCOUNTER → 2023-04-16 01:37 | Outpatient (CLI) | payer MEDICAID, SELFPAY ==
--- NOTE | 2023-04-16 09:30 | DI.US_ITS ---
APPROVED REPORT EXAM: Comprehensive 2D, Doppler, and color-flow Echocardiogram Patient Location: Out-Patient Customer Service Representative: Anjum Franco RDCS (AE) Indications: Dyspnea on exertion Conclusion Normal left ventricular wall thickness and chamber size. EF is 60 to 65%. Wall motion is normal Mildly dilated right ventricle with preserved systolic function Normal left atrial size. Right atrium appears mildly enlarged There is no structural valvular disease Mild tricuspid regurgitation, estimated right ventricular pressure is 21 mmHg Wall motion Left Ventricle The left ventricle is normal size. The left ventricular systolic function is normal. The left ventric ular ejection fraction is within the normal range. There is normal left ventricular wall thickness. T here is normal LV segmental wall motion. There is no ventricular septal defect visualized. LVEF is 60 -65%. Right Ventricle Right ventricle is mildly dilated. Right ventricular systolic function is grossly normal. Atria The left atrium size is normal. Right atrium is mildly dilated. The interatrial septum is intact with no evidence for an atrial septal defect. Aortic Valve The aortic valve is normal in structure. Aortic valve is trileaflet. There is no aortic valvular sten osis. No aortic regurgitation is present. Mitral Valve The mitral valve is normal in structure. No evidence of mitral valve stenosis. There is no mitral silas ve regurgitation noted. Tricuspid Valve The tricuspid valve is normal in structure. There is no tricuspid valve stenosis. Mild tricuspid regu rgitation. The RVSP is 20.8 mmHg. Pulmonic Valve The pulmonary valve is normal in structure. There is no pulmonic valvular stenosis. Mild pulmonic reg urgitation. Great Vessels The aortic root is normal in size. The ascending aorta is normal in size. Aortic arch is normal in ca liber. IVC is normal in size and collapses >50% with inspiration. Pericardium There is no pericardial effusion. 2D Dimensions IVSD d PLAX 0.86 cm F: 0.6-1.0 Ao Root d 2.50 cm F: 2.7 - 3.3 LVPW d PLAX 0.87 cm F: 0.6 - 1.0 Ao Asc Diam d 2.75 cm F: 2.3 - 3.1 LVID d PLAX 4.62 cm F: 3.8 - 5.2 LVDs 3.07 cm F: 2.2 - 3.5 LV EF Teichholz 62.3 % FS 33.53 % LV EDV (Teich) 98.3 mL LV ESV (Teich) 37.0 mL Stroke Vol Index (Teich) 27.84 M-Mode TAPSE 1.98 cm (M/F) >1.7 Auto EF LV EDV A4C 105.3 mL LV EDV A2C 106.9 mL LV EDV BP 107.6 mL LV ESV A4C 42.5 mL LV ESV A2C 45.4 mL LV ESV BP 43.0 mL LVEF(%) A4C 59.6 % LVEF(%) A2C 57.5 % LVEF(%) BP 60.0 % LV SV A4C 62.7 ml LV SV A2C 61.5 ml LV SV BP 64.6 ml LV CO A4C 5.5 L/min LV CO A2C 5.7 L/min LV CO BP 5.6 L/min HR A4C 88.03 BPM HR A2C 92.27 BPM LV EDV Index (BP) LA Volume LA Length A4C 4.3 cm LA Length A2C 2.6 cm LA Area A4C s 7.71 cm2 LA Area A2C s 7.24 cm2 LA Vol A4C A-L 11.82 mL LA Vol A2C A-L 17.32 mL LA Vol Biplane A-L 18.4 mL LA Vol/BSA A4C A-L LA Vol/BSA A2C A-L LA Vol/BSA BP A-L 8.4 mL/m2 LA Vol A4C MOD 10.1 mL LA Vol A2C MOD 13.4 mL LA Vol BP MOD 14.5 mL RA Volume RA Area A4C 15.3 cm2 RA ESV A4C (A-L) 47.9mL RA Vol/BSA A4C A-L RA Length A4C 4.2 cm RA ESV A4C (MOD) 44.0mL LV Diastology MV E' medial 0.125 (>0.07 m/s) MV E Vmax 0.89 (0.4-1.3 m/s) MV E/E' MED 7.06 (<14) MV A Vmax 0.60 (0.4-1.3 m/s) MV E' lateral 0.139 (>0.1 m/s) E/A Ratio 1.5 MV E/E' LAT 6.38 (<14) MV E' Average 0.132 m/s MV E/E'(average) 6.70 Aortic Valve AoV Vmax 1.20 m/s LVOT Vmax 1.00 m/s AoV Peak Grad 5.8 mmHg LVOT Peak Grad 4.0 mmHg AoV Area (Vmax) 2.58 cm2 LVOT VTI 0.192 m AoV VTI 0.224 m LVOT Mean Grad 2.3 mmHg AoV Mean Trey. 0.90 m/s LVOT SV 59.33 mL AoV Mean Grad 3.6 mmHg LVOT Diam s 1.95 cm AoV Area (VTI) 2.65 cm2 Velocity Ratio 0.83 Mitral Valve MV DT 159 (160-240 msec) Pulmonary Valve PV Vmax 1.05 (0.5-1.5 m/s) RVOT Vmax 0.79 m/s PV Peak Grad 4.4 mmHg RVOT Peak Gr. 2.5 mmHg PV Mean Trey 0.69 m/s RVOT VTI 0.157 m PV Mean Grad 2.2 mmHg RVOT Mean Gr. 1.4 mmHg Tricuspid Valve RA Pressure 3.00 mmHg TR Vmax 2.11 m/s TR Peak Grad 17.8 mmHg RVSP (TR) 20.8 mmHg
== END ==
PROVIDERS: PCP Family Medicine; Visit Provider Student in an Organized Health Care Education/Training Program
DX: R06.00 Dyspnea, unspecified (principal)
CPT/HCPCS: 93306

== ENCOUNTER → 2023-06-18 02:27 | Outpatient (CLI) | payer MEDICAID, SELFPAY ==
--- NOTE | 2023-06-18 07:45 | DI.US_ITS ---
Exam(s) US SOFT TISSUE HEAD OR NECK EXAM: US SOFT TISSUE HEAD OR NECK CLINICAL HISTORY: rt jaw lump for 1 month,lump in neck,r22.1. TECHNIQUE: Ultrasound was performed using standard protocol. COMPARISON: No exams were available for comparison FINDINGS: Sonographic assessment utilizing grayscale and color Doppler imaging was performed and targeted to th e area of clinical concern. There are 2 sonographically benign-appearing lymph nodes in the right neck in the region of interest. The larger measures 1.5 x 1.0 x 1.8 cm. The smaller measures 1.2 x 0.7 x 1.1 cm. There are 2 stewart larly benign-appearing lymph nodes in the left neck in the same region. No suspicious cystic or juan luis d masses are seen sonographically. IMPRESSION: 1. No suspicious cystic or solid mass is seen sonographically in the region of interest in the right neck. 2. Sonographically benign-appearing lymph nodes in the right neck in the region of interest. DATA REPOSITORY:
== END ==
PROVIDERS: PCP Family Medicine; Visit Provider Family Medicine
DX: R22.1 Localized swelling, mass and lump, neck (principal); R59.0 Localized enlarged lymph nodes
CPT/HCPCS: 76536

== ENCOUNTER 2023-09-07 02:44 | Outpatient (CLI) | payer MEDICAID, SELFPAY ==
[2023-09-07] MEDS: Methacholine 100 MG VIAL IH (14:47)
[2023-09-07] MEDS: Inhaler, Assist Device 1 EACH MC (14:48)
[2023-09-07] MEDS: Albuterol HFA 18 GM 200 PUFF INH IH (14:48)
--- NOTE | 2023-09-11 11:29 | W.PFT ---
Date of service: 09/07/23 Time of Service: 13:00 Pulmonary Function Test Result Requesting Provider Hanh Benitez Indications: SCHMITT Impression PFT Spirometry shows normal FEV1/FVC at 80%. Normal FEV1 and FVC. Normal flow volume loop. Methacholine challenge Baseline FEV1 of 2.61 L. Patient received incremental doses of methacholine with no significant decrease in FEV1 after 16 mg/ML Impression negative methacholine challenge. Clinical Correlation therefore is recommended.
== END 2023-09-07 02:45 | disposition home or self-care (01) ==
LOC: RT 02:44
PROVIDERS: PCP Family Medicine; Visit Provider Physician Assistant Surgical
DX: R06.02 Shortness of breath (principal)
CPT/HCPCS: 00123; 94060; 94070; J7674

== ENCOUNTER 2024-01-11 09:10 | Day surgery (SDC) | payer MEDICAID, SELFPAY ==
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
[2024-01-11 09:15] VITALS: BP 133/79; PULSE 68; RESP 18; TEMP 36.5; O2SAT 100
[2024-01-11] MEDS: Tropicam./Phenyleph. (1/2.5%) 5 ML BTL OD ×3 (09:30→09:42)
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
[2024-01-11 10:50] VITALS: BMI 36.6
[2024-01-11] MEDS: Tetracaine 0.5% 4 ML BTL OD (11:10)
[2024-01-11] MEDS: Povidone-Iodine Ophth 30 ML BTL (11:11)
[2024-01-11] MEDS: Duovisc Viscoelastic System EACH 1 EACH (11:18)
[2024-01-11] MEDS: Lidocaine 1% Pres-Free 5 ML VIAL (11:18)
[2024-01-11] MEDS: Balanced Salt Soln.-PLUS 500 ML BAG OP (11:18)
[2024-01-11] MEDS: Trypan Blue 0.06% 0.5 ML SYR (11:19)
[2024-01-11] MEDS: Prednisolone 1%, Moxifloxacin 0.5%, Bromfenac 0.09% 5.6ML BTL OD (11:34)
[2024-01-11 11:46] VITALS: BP 126/82; PULSE 77; RESP 18; TEMP 36.2; O2SAT 100
--- NOTE | 2024-01-11 11:46 | W.PM.DSUDISC ---
Date of service: 01/11/24 Discharge Plan Disposition Patient Disposition: Home Discharge Details Attending Provider: Partha Juan Primary Care Provider: Rocael Tam Home Meds and New Rx's Prescriptions: No Action metformin 500 mg tablet 500 mg PO BID Qty: 60 6RF omeprazole 40 mg capsule,delayed release(DR/EC) 40 mg PO DAILY PRN (Reason: heartburn) Qty: 90 2RF ferrous sulfate 325 mg (65 mg iron) tablet,delayed release (DR/EC) 325 mg PO BID Qty: 180 3RF cholecalciferol (vitamin D3) 25 mcg (1,000 unit) capsule 25 mcg PO DAILY Qty: 90 3RF norethindrone (contraceptive) 0.35 mg tablet 0.35 mg PO DAILY Qty: 84 3RF (DME) lancets [OneTouch Delica Plus Lancet] 30 gauge misc See Rx Instructions .ROUTE .MEDSUPPLY Qty: 100 3RF Rx Instructions: Testing 3 x daily (DME) OneTouch Verio test strips Strip See Rx Instructions .Route Qty: 100 4RF Rx Instructions: QID loratadine 10 mg tablet 10 mg PO DAILY Qty: 90 3RF acetaminophen 325 mg Tablet 650 mg PO Q4H PRN PRNQty: 90 0RF ibuprofen 600 mg Tablet 600 mg PO Q6H PRN PRNQty: 90 0RF Discharge Instructions Stand Alone Forms: DSU Post-Op CataractDanisha (DSU) Discharge Orders Discharge Orders: Discharge Order (Routine); Ordered 01/11/24 Ordered By: Partha Juan DS: Diagnosis Discharge Diagnosis (1) Posterior subcapsular age-related cataract, right eye: Status: Resolved (2) Cortical age-related cataract, right eye: Status: Resolved
--- NOTE | 2024-01-11 11:47 | W.PM.OP ---
Operative Note Operative Note PRE-OP DIAGNOSIS: Nuclear/posterior subcapsular cataract, right eye POST-OP DIAGNOSIS: same PROCEDURE: Cataract extraction using phacoemulsification with intraocular lens implant, right eye SURGEON: Partha Juan ANESTHESIA TYPE: Local By Surgeon and MAC Refer to Anesthesia Record ESTIMATED BLOOD LOSS: 0 PATHOLOGY: none sent COMPLICATIONS: None Patient was transported to: same day Patient's condition: stable Implants: Grzegorz & Grzegorz Tecnis Eyhance [id number] Indications: Progressive visual loss due to cataract, right eye Procedure Description: CATARACT SURGERY OPERATIVE REPORT PREOPERATIVE DIAGNOSIS: 1. Nuclear/posterior subcapsular cataract, right eye POSTOPERATIVE DIAGNOSIS: Same OPERATION: 1. Cataract extraction using phacoemulsification with posterior chamber intraocular lens implant, right eye. IOL: IOL Marketing Automation Manager/Model: Grzegorz & Grzegorz Tecnis Eyhance DIB00 IOL Power: + 21.0 diopters IOL Serial Number: [id number] Optic Diameter: 6.0mm Haptic/Overall Diameter: 13.0mm PHACO INFO: Yusef[employer]on Vision System with OZil and Active Fluidics Cumulative Dispersed Energy (CDE): 0.0 seconds SURGEON: Partha Juan MD, GAURAV ANESTHESIA: Monitored Anesthesia Care (MAC), with local sub-tenon's anesthetic infiltration COMPLICATIONS: None SPECIMENS: None INDICATIONS FOR PROCEDURE: The patient is a 33-year-old lady with history of progressive decreased vision in her right eye secondary to the development of significant anterior and posterior cortical, as well as posterior subcapsular cataract. This interfering with her daily functioning. The option of cataract surgery was offered to the patient and she wished to proceed. See office notes for detailed information. PROCEDURE: The correct surgical eye was identified and marked as the right eye and the pupil was dilated in the preoperative area using mydriatics and cycloplegics. The dilated pupil size was 7.0 mm. Oral sedation was administered in the form of an Imprimis MKO Melt (midazolam 3mg/ketamine 25mg/ondansetron 2mg). The patient was brought to the operating room where cardiopulmonary monitoring was instituted and surgical time-out was performed, confirming the correct operative eye and IOL power. Topical anesthesia was administered and ophthalmic povidone-iodine 5% was instilled into the conjunctival fornices. The josemanuel-ocular area was prepped with Betadine 10% solution and draped in the usual sterile fashion for intraocular surgery, including an aperture drape. A Tegaderm transparent film dressing was cut in half and used to cover the lashes and lid margins. Care was taken to sequester the lashes and lid margins under the Tegaderm dressing. A lid speculum was placed between the lids of the operative eye and the Yusef Lux[employer] Revalia operating microscope was maneuvered into position. Dawson scissors were then used to make a conjunctival buttonhole approximately 6mm posterior to the limbus in the inferonasal quadrant. Blunt dissection was carried out to expose bare sclera, and a blunt-tipped sub-tenon?s anesthesia cannula was introduced and passed posteriorly along the globe where non-preserved plain lidocaine was injected into posterior sub-Tenon?s space. A sideport knife was used to make a paracentesis port. VisionBlue was injected into the anterior chamber and allowed to sit for 30 seconds. Intraocular phenylephrine/lidocaine was injected into the anterior chamber. The anterior chamber was filled with viscoelastic. A keratome knife was used to construct a 2-plane clear corneal tunnel extending 2.0mm into clear cornea. A flap was raised on the anterior capsule and capsulorhexis forceps were used to complete a continuous curvilinear capsulorhexis of 5.0 mm. Balanced salt solution was then used to perform cortical cleaving hydrodissection and nuclear hydrodelineation until the lens could be freely rotated within the capsular bag. The lens nucleus was then disassembled and removed within the capsular bag and iris plane using phacoemulsification. No ultrasound energy was necessary, aspiration only was able to remove the entire nucleus/epi nucleus. Residual cortical material was removed using the I/A handpiece. The posterior capsule was carefully polished to remove as much residual lens epithelial cells as safely possible. The underside of the anterior capsule was also polished extensively for 360 degrees. The capsular bag was then inflated and the anterior chamber deepened with cohesive viscoelastic. The lens implant described above was inserted into the capsular bag using the Grzegorz and Willy Simplicity pre-loaded injector. A Kuglen hook was used to dial the IOL into position. Residual viscoelastic was then removed first from posterior to the IOL, then from the anterior chamber using the I/A handpiece. The lens implant was noted to center nicely within the capsular bag. The incisions were stromally hydrated, and the anterior chamber was reformed using BSS. Then 0.5cc of moxifloxacin 1.0mg/ml were injected into the capsular bag and anterior chamber. The incisions were checked with a Weck spear and found to be secure. Several drops of ophthalmic povidone-iodine 5% were then applied to the eye followed by two drops ocombination steroid/NSAID/antibiotic solution. The drapes were removed and a clear plastic protective eye shield was placed over the eye. The patient was then returned to Same Day Surgery in stable condition. Date of Procedure: 01/11/24
--- NOTE | 2024-01-11 12:06 | W.ANESPOSTOP ---
Postoperative Evaluation Date, Time and Location Date Performed: 01/11/24 Time Performed: 11:44 Patient Location: Day Surgery Unit Vital Signs Most Recent Imported Vital Signs: Most Recent Vital Signs Temp Pulse Resp BP Pulse Ox 36.2 C L 77 18 126/82 100 01/11/24 11:46 01/11/24 11:46 01/11/24 11:46 01/11/24 11:46 01/11/24 11:46 Pain Score Most Recent Pain Score: Most Recent Pain Score Pain Level 0 01/11/24 11:46 Assessment Mental Status: Awake (Alert & Oriented to Patient Baseline) Airway and Respiratory Function: Patent airway with normal (patient baseline) respiratory exam Cardiovascular Function: Hemodynamically Stable Hydration Status: Adequately Hydrated Nausea & Vomiting: No Nausea or Vomiting Pain: Pt. Denies Any Pain Peripheral Nerve Block: Patient did not receive a nerve block
[2024-01-11 12:12] VITALS: BP 133/77; PULSE 86; RESP 18; TEMP 36.2; O2SAT 98
== END 2024-01-11 12:16 | disposition home or self-care (01) ==
LOC: SUR 09:10
PROVIDERS: PCP Family Medicine; Visit Provider Ophthalmology
PROC: (CPT 66984; principal; 2024-01-11 11:30)
DX: H25.041 Posterior subcapsular polar age-related cataract, right eye (principal); H25.011 Cortical age-related cataract, right eye
CPT/HCPCS: 66984; 00123; 81025; V2632; J2003

== ENCOUNTER 2024-01-25 09:10 | Day surgery (SDC) | payer MEDICAID, SELFPAY ==
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
[2024-01-25 09:20] VITALS: BP 115/79; PULSE 76; RESP 18; TEMP 36.3; O2SAT 98
[2024-01-25] MEDS: Tropicam./Phenyleph. (1/2.5%) 5 ML BTL OS ×3 (09:36→09:46)
[2024-01-25 09:38] VITALS: BMI 36.6
[2024-01-25] MEDS: Duovisc Viscoelastic System EACH 1 EACH (10:27)
[2024-01-25] MEDS: Povidone-Iodine Ophth 30 ML BTL (10:29)
[2024-01-25] MEDS: Phenylephrine/Lidocaine (15/10) MG/ML 1 ML VIAL (10:29)
[2024-01-25] MEDS: Lidocaine 1% Pres-Free 5 ML VIAL (10:30)
[2024-01-25] MEDS: Trypan Blue 0.06% 0.5 ML SYR (10:31)
[2024-01-25] MEDS: Balanced Salt Soln.-PLUS 500 ML BAG OP (10:31)
[2024-01-25] MEDS: Prednisolone 1%, Moxifloxacin 0.5%, Bromfenac 0.09% 5.6ML BTL OS (10:33)
[2024-01-25] MEDS: Tetracaine 0.5% 4 ML BTL OS (10:33)
[2024-01-25 10:47] VITALS: BP 119/77; PULSE 79; RESP 16; TEMP 36.4; O2SAT 100
--- NOTE | 2024-01-25 10:48 | W.PM.DSUDISC ---
Date of service: 01/25/24 Discharge Plan Disposition Patient Disposition: Home Discharge Details Attending Provider: Partha Juan Primary Care Provider: Rocael Tam Home Meds and New Rx's Prescriptions: No Action metformin 500 mg tablet 500 mg PO BID Qty: 60 6RF omeprazole 40 mg capsule,delayed release(DR/EC) 40 mg PO DAILY PRN (Reason: heartburn) Qty: 90 2RF ferrous sulfate 325 mg (65 mg iron) tablet,delayed release (DR/EC) 325 mg PO BID Qty: 180 3RF cholecalciferol (vitamin D3) 25 mcg (1,000 unit) capsule 25 mcg PO DAILY Qty: 90 3RF norethindrone (contraceptive) 0.35 mg tablet 0.35 mg PO DAILY Qty: 84 3RF (DME) lancets [OneTouch Delica Plus Lancet] 30 gauge misc See Rx Instructions .ROUTE .MEDSUPPLY Qty: 100 3RF Rx Instructions: Testing 3 x daily (DME) OneTouch Verio test strips Strip See Rx Instructions .Route Qty: 100 4RF Rx Instructions: QID loratadine 10 mg tablet 10 mg PO DAILY Qty: 90 3RF acetaminophen 325 mg Tablet 650 mg PO Q4H PRN PRNQty: 90 0RF ibuprofen 600 mg Tablet 600 mg PO Q6H PRN PRNQty: 90 0RF Discharge Instructions Stand Alone Forms: DSU Post-Op CataractDanisha (DSU) Discharge Orders Discharge Orders: Discharge Order (Routine); Ordered 01/25/24 Ordered By: Partha Juan DS: Diagnosis Discharge Diagnosis (1) Cortical age-related cataract, left eye: Status: Resolved (2) Posterior subcapsular age-related cataract of left eye: Status: Resolved (3) Cortical age-related cataract, left eye: Status: Resolved
--- NOTE | 2024-01-25 10:50 | W.PM.OP ---
Operative Note Operative Note PRE-OP DIAGNOSIS: Nuclear/cortical/posterior subcapsular cataract, left eye POST-OP DIAGNOSIS: same PROCEDURE: Cataract extraction using phacoemulsification with intraocular lens implant, left eye SURGEON: Partha Juan ANESTHESIA TYPE: Local By Surgeon and MAC Refer to Anesthesia Record PATHOLOGY: none sent COMPLICATIONS: None Patient was transported to: same day Patient's condition: stable Implants: Grzegorz and Grzegorz Tecnis Eyhance DIB00 Indications: Progressive decreased vision due to cataract, left eye Procedure Description: CATARACT SURGERY OPERATIVE REPORT PREOPERATIVE DIAGNOSIS: 1. Nuclear/cortical/posterior subcapsular cataract, left eye POSTOPERATIVE DIAGNOSIS: Same OPERATION: 1. Cataract extraction using phacoemulsification with posterior chamber intraocular lens implant, left eye. IOL: IOL Laundry Pricing Clerk/Model: Grzegorz & Grzegorz Tecnis Eyhance DIB00 IOL Power: + 21.0 diopters IOL Serial Number: [id number] Optic Diameter: 6.0 mm Haptic/Overall Diameter: 13.0 mm PHACO INFO: [employer] Vision System with OZil and Active Fluidics Cumulative Dispersed Energy (CDE): 0.0 seconds SURGEON: Partha Juan MD, GAURAV ANESTHESIA: Monitored A [facility] (MAC), with local sub-tenon's anesthetic infiltration COMPLICATIONS: None SPECIMENS: None INDICATIONS FOR PROCEDURE: The patient is a 33-year-old lady who presented with complaints of progressive decreased vision in both eyes at both distance and near with glare symptoms. She was noted to have mild nuclear and posterior subcapsular cataract in both eyes with dense anterior and posterior cortical cataracts. The option of cataract surgery was offered to the patient and she wished to proceed. She has already undergone cataract surgery in the right eye and is doing well postoperatively. She now presents for cataract surgery in the left eye. PROCEDURE: The correct surgical eye was identified and marked as the left eye and the pupil was dilated in the preoperative area using mydriatics and cycloplegics. The dilated pupil size was 6.5 mm. The patient elected to proceed without oral sedation. The patient was brought to the operating room where cardiopulmonary monitoring was instituted and surgical time-out was performed, confirming the correct operative eye and IOL power. Topical anesthesia was administered and ophthalmic povidone-iodine 5% was instilled into the conjunctival fornices. The josemanuel-ocular area was prepped with Betadine 10% solution and draped in the usual sterile fashion for intraocular surgery, including an aperture drape. A Tegaderm transparent film dressing was cut in half and used to cover the lashes and lid margins. Care was taken to sequester the lashes and lid margins under the Tegaderm dressing. A lid speculum was placed between the lids of the operative eye and the Yusef LuxOR Revalia operating microscope was maneuvered into position. Dawson scissors were then used to make a conjunctival buttonhole approximately 6mm posterior to the limbus in the inferonasal quadrant. Blunt dissection was carried out to expose bare sclera, and a blunt-tipped sub-tenon?s anesthesia cannula was introduced and passed posteriorly along the globe where non-preserved plain lidocaine was injected into posterior sub-Tenon?s space. A sideport knife was used to make a paracentesis port. VisionBlue was injected into the anterior chamber and allowed to sit for 30 seconds. Intraocular phenylephrine/lidocaine was injected into the anterior chamber.. The anterior chamber was filled with viscoelastic. A keratome knife was used to construct a 2-plane near-clear corneal tunnel extending 2.0mm into clear cornea. A flap was raised on the anterior capsule and capsulorhexis forceps were used to complete a continuous curvilinear capsulorhexis of 5.0 mm. Balanced salt solution was then used to perform cortical cleaving hydrodissection and nuclear hydrodelineation until the lens could be freely rotated within the capsular bag. The lens nucleus and Epinucleus was then removed using the phacoemulsification handpiece, but with aspiration only, as the lens was quite soft. Residual cortical material was removed using the irrigation/aspiration handpiece. The posterior capsule was carefully polished to remove as much residual lens epithelial cells as safely possible. The underside of the anterior capsular rim was polished extensively. The capsular bag was then inflated and the anterior chamber deepened with viscoelastic. The lens implant described above was inserted into the capsular bag using the Grzegorz and Grzegorz Simplicity pre-loaded injector. A Kuglen hook was used to dial the IOL into position. Residual viscoelastic was then removed first from posterior to the IOL, then from the anterior chamber using the I/A handpiece. The lens implant was noted to center nicely within the capsular bag. The incisions were stromally hydrated, and the anterior chamber was reformed using BSS. Then 0.5cc of moxifloxacin 1.0mg/ml were injected into the capsular bag and anterior chamber. The incisions were checked with a Weck spear and found to be secure. Several drops of ophthalmic povidone-iodine 5% were then applied to the eye followed by two drops of Imprimis combination prednisolone/moxifloxacin/nepafenac solution. The drapes were removed and a clear plastic protective eye shield was placed over the eye. The patient was then returned to Same Day Surgery in stable condition. Date of Procedure: 01/25/24
[2024-01-25 11:04] VITALS: BP 123/70; PULSE 85; RESP 16; TEMP 36.4; O2SAT 98
--- NOTE | 2024-01-25 11:04 | W.ANESPOSTOP ---
Postoperative Evaluation Date, Time and Location Date Performed: 01/25/24 Time Performed: 11:04 Patient Location: Day Surgery Unit Vital Signs Most Recent Imported Vital Signs: Most Recent Vital Signs Temp Pulse Resp BP Pulse Ox 36.4 C L 79 16 119/77 100 01/25/24 10:47 01/25/24 10:47 01/25/24 10:47 01/25/24 10:47 01/25/24 10:47 Pain Score Most Recent Pain Score: Most Recent Pain Score Pain Level 0 01/25/24 10:47 Assessment Mental Status: Awake (Alert & Oriented to Patient Baseline) Airway and Respiratory Function: Patent airway with normal (patient baseline) respiratory exam Cardiovascular Function: Hemodynamically Stable Hydration Status: Adequately Hydrated Nausea & Vomiting: No Nausea or Vomiting Pain: Pt. Denies Any Pain Peripheral Nerve Block: Patient did not receive a nerve block
== END 2024-01-25 11:13 | disposition home or self-care (01) ==
LOC: SUR 09:10
PROVIDERS: PCP Family Medicine; Visit Provider Ophthalmology
PROC: (CPT 66984; principal; 2024-01-25 11:30)
DX: H25.012 Cortical age-related cataract, left eye (principal); H25.042 Posterior subcapsular polar age-related cataract, left eye; Z98.41 Cataract extraction status, right eye
CPT/HCPCS: 66984; 00123; V2632; J2003

== ENCOUNTER 2024-03-20 12:41 | Emergency (ER) | payer MEDICAID, SELFPAY ==
[2024-03-20 12:51] VITALS: BP 135/85; PULSE 114; RESP 20; TEMP 39.4; O2SAT 98
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
--- NOTE | 2024-03-20 13:15 | DI.RAD_ITS ---
Exam(s) XR CHEST 2V PA LATERAL EXAM: XR CHEST 2V PA LATERAL CLINICAL HISTORY: Eval PNA TECHNIQUE: 2D digital imaging was performed. Two views. COMPARISON: No exams were available for comparison FINDINGS: HEART: Normal size. Aorta: Not dilated. PULMONARY VASCULATURE: Normal. MEDIASTINUM: Unremarkable. LUNGS: Clear. PLEURAL SPACE: No pleural effusion or pneumothorax. BONE:Unremarkable for age. SOFT TISSUES: Unremarkable. IMPRESSION: No acute abnormality. DATA REPOSITORY: RADIATION DOSE DELIVERED:
[2024-03-20] MEDS: Ibuprofen 600 MG TAB PO (13:16)
[2024-03-20] MEDS: Acetaminophen 500 MG TAB 1000 MG PO (13:17)
[2024-03-20 14:01] LABS: COVID-19 PCR Negative (Negative); Influenza A PCR Positive (Negative); Influenza B PCR Negative (Negative); RSV PCR Negative (Negative)
[2024-03-20 14:02] LABS: Source Nasopharynx
== END 2024-03-20 14:34 | disposition home or self-care (01) ==
PROVIDERS: Emergency Provider Emergency Medicine; PCP Family Medicine
DX: J10.1 Influenza due to other identified influenza virus with other respiratory manifestations (principal); R50.9 Fever, unspecified; R05.9 Cough, unspecified; J45.909 Unspecified asthma, uncomplicated; E11.9 Type 2 diabetes mellitus without complications
CPT/HCPCS: 87426; 87637; 99283; 71046

== ENCOUNTER 2024-03-27 08:45 | Outpatient (CLI) | payer MEDICAID, SELFPAY ==
[2024-03-27 12:34] LABS: HCT 36.9 % (36.0-46.0); HGB 12.1 g/dL (11.2-15.7); MCH 25.4 pg (27.0-33.0); MCHC 32.8 % (32.0-36.0); MCV 77 fL (80-95); MPV 11.4 fL (8.0-11.0); Platelet Count 398 10^3/uL (130-400); RBC 4.77 10^6/uL (3.93-5.22); RDW 14.3 % (11.7-14.6); WBC 6.04 10^3/uL (4.4-10.8)
[2024-03-27 13:53] LABS: Anion Gap 4.1 mmol/L (3-11); BUN 8 mg/dL (7-18); CO2 29.9 mmol/L (21.0-32.0); CREATININE 0.8 mg/dL (0.55-1.02); Calcium 9.4 mg/dL (8.5-10.1); Chloride 107 mmol/L (98-107); Estimated GFR 99.71 (mL/min/1.73m2); Glucose 91 mg/dL (74-106); Potassium 4.4 mmol/L (3.5-5.1); Sodium 141 mmol/L (136-145)
[2024-03-27 14:45] LABS: Hemoglobin A1C 6.1 % (<5.7)
== END 2024-03-27 08:46 | disposition home or self-care (01) ==
LOC: LOS 08:45
PROVIDERS: PCP Family Medicine; Referring Provider Family Medicine; Visit Provider Family Medicine
DX: E87.1 Hypo-osmolality and hyponatremia (principal); R53.83 Other fatigue; R73.9 Hyperglycemia, unspecified; J10.1 Influenza due to other identified influenza virus with other respiratory manifestations; H25.011 Cortical age-related cataract, right eye; H25.012 Cortical age-related cataract, left eye; E66.9 Obesity, unspecified
CPT/HCPCS: 36415; 80048; 85027; 83036